=== PATIENT | female | born 1955 | race Caucasian/White ===

== ENCOUNTER 2021-01-09 14:58 | Outpatient (CLI) | payer MEDICARE, SELFPAY ==
--- NOTE | ~2021-01-09 | XR_ITS ---
XR chest 2V DATE: 01/09/2021 15:16 INDICATION: Shortness of breath, cough TECHNIQUE: PA and lateral views COMPARISON: None FINDINGS: Normal heart size. No hilar or mediastinal enlargement. There is approximately 1.5 cm opacity overlying the posterior right lower lung field and T9 vertebral body on the lateral projection; CT thorax is recommended for further evaluation. Moderate hyperinflation of the lungs. No pulmonary infiltrate or consolidation, pleural effusion or p ulmonary vascular congestion or pneumothorax is noted otherwise. Diffuse osteopenia. IMPRESSION: Approximately 1.5 cm opacity overlying posterior lower lung vallecillo and T9 vertebral body; CT thorax is recommended for further evaluation; lung mass should be excluded. On January 09, [address] Zepeda telephoned the report and CT chest recommendation to Dr. Wanda Neal. Reviewed, dictated and finalized at location A. AL CONTROL SUPERVISOR IMPRESSION: Approximately 1.5 cm opacity overlying posterior lower lung vallecillo and T9 vertebral body; CT thorax is recommended for further evaluation; lung ma ss should be excluded. On January 09, [address] Zepeda telephoned the report and CT chest recommendation to Dr. Wanda Neal.
== END 2021-01-09 14:59 | disposition home or self-care (01) ==
PROVIDERS: PCP Family Medicine; Visit Provider Family Medicine
DX: R06.02 Shortness of breath (principal)
CPT/HCPCS: 71046

== ENCOUNTER 2021-01-15 11:18 | Outpatient (CLI) | payer MEDICARE, SELFPAY ==
--- NOTE | ~2021-01-15 | CT_ITS ---
EXAMINATION: CT chest high resolution wo co DATE: 01/15/2021 12:21 INDICATION: Indeterminate nodular opacity on chest radiograph TECHNIQUE: Computed tomography (CT) of the chest was performed without intravenous contrast. The dose -length product (DLP) was 211.87 mGy-cm. Automated exposure control and iterative reconstruction tech [employer] were employed. COMPARISON: 01/09/2021 FINDINGS: There is a sclerotic lesion with spiculated margins in the T9 vertebral body. No additional sclerotic bone lesions are identified. The lungs are free of acute opacities. There is no pleural ef fusion or pneumothorax. No pathologically enlarged thoracic lymph nodes are identified. The heart siz e is normal. Calcified coronary artery atherosclerosis is noted. The liver is diffusely low in attenu ation when compared with the spleen, consistent with hepatic steatosis. There is a small sliding hiat al hernia. IMPRESSION: 1. Sclerotic lesion of the T9 vertebral body, likely a bone island given the appearance and absence o f additional osseous lesions. If there is history of malignancy, would recommend bone scan for furthe r evaluation. 2. Diffuse hepatic steatosis. Reviewed, dictated and finalized at location A. ER FITTER HELPER IMPRESSION: 1. Sclerotic lesion of the T9 vertebral body, likely a bone island given the ap pearance and absence of additional osseous lesions. If there is history of abbey gnancy, would recommend bone scan for further evaluation. 2. Diffuse hepatic steatosis.
== END 2021-01-15 11:19 | disposition home or self-care (01) ==
LOC: ANHIMG 11:24
PROVIDERS: PCP Family Medicine; Visit Provider Family Medicine
DX: R91.8 Other nonspecific abnormal finding of lung field (principal); R93.89 Abnormal findings on diagnostic imaging of other specified body structures; M89.9 Disorder of bone, unspecified; K76.0 Fatty (change of) liver, not elsewhere classified
CPT/HCPCS: 71250

== ENCOUNTER 2021-01-30 12:31 | Outpatient (CLI) | payer MEDICARE, SELFPAY ==
--- NOTE | 2021-01-30 17:07 | P.PCNPFT_ITS ---
PFT Interpretation This is a pulmonary function test with pre and post-bronchodilator spirometry, plethysmography and diffusing capacity. The test was performed and results interpreted in accordance with the 2019 and 2005 ATS/ERS Task Force guidelines respectively using the Global Lung Function Initiative-2012 reference equations. Patient demonstrated good effort and c ooperation. Reproducibility criteria were met. The quality of the pre bronchodilator spirometry maneuver was Grade A and post bronchodilator spirometry maneuver was Grade A. Findings: Spirometry: there is decreased maximal expiratory airflow at all lung volumes with concave expiratory flow tracing. The inspiratory flow tracing is normal. The pre bronchodilator FVC is 2.19 L, 71% predicted. The pre bronchodilator FEV1 is 1.15 L, 48% predicted. The FEV1: FVC ratio is 53%. The post bronchodilator FVC is 2.20 L, representing no change. The post bronchodilator FEV1 is 1.26 L, representing a 10% increase. Plethysmography: The total lung capacity is 4.89 L, 94% predicted. The functional residual capacity is 3.41 L, 115% predicted. The residual volume is 2.70 L, 125% predicted. Diffusing capacity: The absolute diffusion capacity is 13.9, 65% predicted. The diffusing capacity corrected for alveolar volume is 4.70, 109% predicted. Impression: There is a severe obstructive abnormality without significant improvement after inhaling a single dose of albuterol. The lung volumes are normal. The absolute diffusing capacity is mildly decreased and normalizes when corrected for alveolar volume. There are no prior studies for comparison
== END 2021-01-30 12:32 | disposition home or self-care (01) ==
PROVIDERS: PCP Family Medicine; Visit Provider Family Medicine
DX: R06.02 Shortness of breath (principal); R94.2 Abnormal results of pulmonary function studies
CPT/HCPCS: 94060; 94726; 94729

== ENCOUNTER 2021-05-11 10:38 | Outpatient (CLI) | payer MEDICARE, SELFPAY ==
--- NOTE | ~2021-05-11 | MM_ITS ---
EXAMINATION: MM screening myriam BI w maryjane HISTORY: Screening mammogram TECHNIQUE: Craniocaudal and mediolateral oblique 3-D tomosynthesis images were obtained and synthetic 2-D images were generated. CAD analysis was submitted and interpreted. COMPARISON: 11/01/2006 and 09/14/2005 bilateral digital screening mammogram examinations BREAST PARENCHYMAL COMPOSITION: There are scattered areas of fibroglandular density. FINDINGS: Possible new breast masses are suggested on the left. Diagnostic left mammogram and left br east ultrasound examination are recommended. No suspicious mass or architectural distortion or significant new or developing density is noted on t he right. No skin thickening or retraction. IMPRESSION: 1. Possible new left breast masses 2. Diagnostic left mammogram and left breast ultrasound examination are recommended. BI-RADS Category 0: Incomplete: Needs additional imaging evaluation. Reviewed, dictated and finalized at location A. IMPRESSION: 1. Possible new left breast masses 2. Diagnostic left mammogram and left breast ultrasound examination are recomme nded. BI-RADS Category 0: Incomplete: Needs additional imaging evaluation.
== END 2021-05-11 10:39 | disposition home or self-care (01) ==
LOC: ANHIMG 10:40
PROVIDERS: PCP Family Medicine; Visit Provider Family Medicine
DX: Z12.31 Encounter for screening mammogram for malignant neoplasm of breast (principal); R92.8 Other abnormal and inconclusive findings on diagnostic imaging of breast
CPT/HCPCS: 77063; 77067

== ENCOUNTER 2021-06-08 13:20 | Outpatient (CLI) | payer MEDICARE, SELFPAY ==
--- NOTE | ~2021-06-08 | MMUS_ITS ---
EXAMINATION: MM diagnostic mammo unilat LT, US breast LT complete HISTORY: Follow-up left breast asymmetries TECHNIQUE: Additional 3-D tomosynthesis images of the left breast were performed and synthetic 2-D im ages were generated. CAD analysis was submitted and interpreted. High resolution left complete breast ultrasound was performed. COMPARISON: 05/11/2021 BREAST PARENCHYMAL COMPOSITION: Breast composed of scattered areas of fibroglandular density. FINDINGS: MAMMOGRAPHIC FINDINGS: There are 2 small masses in the upper outer quadrant of the left breast which are partially obscured by fibroglandular tissue. There are no suspicious calcifications or architectural distortion. ULTRASOUND: Complete left breast ultrasound: At 1:00, 2 cm from the nipple, there is a 5 mm intramammary lymph no de. At 2:00, 4 cm from the nipple, there is a 4 mm cyst. At 2:00, 3 cm from the nipple, there is an o dominga hypoechoic mass measuring 8 x 7 x 4 mm with echogenic center, likely benign intramammary lymph no de. At 6:00, 3 cm from the nipple, there is an irregular shaped hypoechoic mass measuring 7 x 6 x 4 m m without posterior features or internal vascularity. IMPRESSION: 1. Irregular shaped hypoechoic mass of the left breast at 6:00, 3 cm from the nipple measuring 7 mm. 2. Ultrasound-guided left breast biopsy recommended. BI-RADS category 4, suspicious findings. Reviewed, dictated and finalized at location A. IMPRESSION: 1. Irregular shaped hypoechoic mass of the left breast at 6:00, 3 cm from the n ipple measuring 7 mm. 2. Ultrasound-guided left breast biopsy recommended. BI-RADS category 4, suspicious findings.
== END 2021-06-08 13:21 | disposition home or self-care (01) ==
LOC: ANHIMG 13:21
PROVIDERS: PCP Family Medicine; Visit Provider Family Medicine
DX: N63.21 Unspecified lump in the left breast, upper outer quadrant (principal); N60.02 Solitary cyst of left breast
CPT/HCPCS: 76641; 77065

== ENCOUNTER 2021-06-14 09:04 | Outpatient (CLI) | payer MEDICARE, SELFPAY ==
--- NOTE | ~2021-06-14 | MMUS_ITS ---
EXAMINATION: US GUIDED NEEDLE BIOPSY DATE: 06/14/2021 11:02 CDT INDICATION: 7 mm irregular hypoechoic sonographic lesion at 6:00 3 cm from nipple TECHNIQUE AND FINDINGS: The risks and potential benefits of the procedure were discussed with the patient, and written inform ed consent was obtained. Timeout procedure was performed. After sterile preparation of the left breas t, 1% lidocaine was utilized for local anesthesia. A 14G spring-loaded biopsy gun needle was advanced to the edge of the region of interest from a later al approach utilizing sonographic guidance. A total of three tissue core samples were obtained throu gh the lesion. An Inrad tissue marker clip was then placed at the biopsy site. Hemostasis was achiev ed. A sterile bandage was applied. The patient tolerated procedure well and there was no evidence of immediate complication. The patien t was given verbal instructions prior to departing from the department. A two view mammogram was perf ormed to document tissue marker clip placement. The tissue samples were submitted to surgical patholo gy for histologic analysis. IMPRESSION: 1. Successful ultrasound guided biopsy of left 6:00 breast mass with biopsy marker placement. Please refer to pathology report for histologic analysis. Reviewed, dictated and finalized at Location A. Reviewed, dictated and finalized at location A. IMPRESSION: 1. Successful ultrasound guided biopsy of left 6:00 breast mass with biopsy ma rker placement. Please refer to pathology report for histologic analysis.
== END 2021-06-14 09:05 | disposition home or self-care (01) ==
LOC: ANHIMG 09:06
PROVIDERS: PCP Family Medicine; Visit Provider Physician Assistant
DX: R92.8 Other abnormal and inconclusive findings on diagnostic imaging of breast (principal)
CPT/HCPCS: 19083; 88305; A4648

== ENCOUNTER 2021-07-24 14:13 | Outpatient (CLI) | payer MEDICARE, SELFPAY ==
--- NOTE | ~2021-07-24 | XR_ITS ---
EXAMINATION: XR chest 2V DATE: 07/24/2021 14:34 INDICATION: Cough and congestion TECHNIQUE: PA and lateral views of the chest are obtained. COMPARISON: 01/09/2021 FINDINGS: The lungs are free of acute opacities. There is no pleural effusion or pneumothorax. The ca rdiomediastinal silhouette is normal. There is moderate thoracic spondylosis. A bone island is noted in the T9 vertebral body. IMPRESSION: 1. No acute cardiopulmonary abnormality. Reviewed, dictated and finalized at location B.
== END 2021-07-24 14:14 | disposition home or self-care (01) ==
LOC: ANHIMG 14:18
PROVIDERS: PCP Family Medicine; Visit Provider Family Medicine
DX: R05 Cough (principal); R09.81 Nasal congestion; Z87.09 Personal history of other diseases of the respiratory system
CPT/HCPCS: 71046

== ENCOUNTER 2022-03-06 08:13 | Outpatient (CLI) | payer OTHER, SELFPAY ==
--- NOTE | ~2022-03-06 | CT_ITS ---
EXAMINATION:CT lung screening DATE: 03/06/2022 09:09 INDICATION: Personal history of tobacco dependence. Current smoker with 51 pack year history. TECHNIQUE: Computed tomography (CT) of the chest was performed without intravenous contrast. Automate d exposure control and iterative reconstruction technique were employed. The dose-length product (DLP ) was 107.30 mGy-cm. COMPARISON: Chest CT 01/15/2021 FINDINGS: There is mild scarring at the lung apices. There is mild atelectasis bilaterally. There is a 3 mm nodule in left lower lobe. There is a 5 mm nonsolid nodule in lingula. There is a 3 mm nodule at left major fissure. Calcified left lung nodules and calcified left hilar lymph nodes are consisten t with old granulomatous disease. No pleural effusion. The heart size is normal. There are coronary a rtery calcifications. No pericardial effusion. There is a small sliding hiatal hernia. There is diffu se hepatic steatosis. There is a benign bone island in T9. There is severe lower thoracic spondylosis . IMPRESSION: 1. Lung-RADS category 2: Benign appearance or behavior. Continue annual screening with noncontrast lo w-dose chest CT in 12 months. Reviewed, dictated and finalized at location B. IMPRESSION: 1. Lung-RADS category 2: Benign appearance or behavior. Continue annual screeni ng with noncontrast low-dose chest CT in 12 months.
--- NOTE | 2022-03-11 18:39 | WPDSIXMINUTE ---
Six Minute Walk Procedure Procedure Performed Pulmonary Stress Test (6 min walk) Six Minute Walk Six Minute Walk: DOS: 03/06/2022 REQUESTING: Dr Joel Sherman REASON FOR TESTING: Bronchitis: Shortness of breath SIX MINUTE WALK This test was conducted per ATS guidelines. the initial saturation is 96% and pulse is 68. The patient walked while breathing room air, did not stop to rest. Saturation minimum was 90%. Maximum pulse was 96. At the end of the study the saturation was 91% and the pulse was 84. Distance walked was 1300 feet/396 meters. IMPRESSION: The patient did not qualify for supplemental oxygen with exertion. The saturation decreased from 96% to 90%, a 6% drop which is outside the normal range. There was a delay in recovery. Clinical correlation is recommended.
== END 2022-03-06 08:14 | disposition home or self-care (01) ==
PROVIDERS: PCP Family Medicine; Visit Provider Internal Medicine Pulmonary Disease
DX: J40 Bronchitis, not specified as acute or chronic (principal); Z12.2 Encounter for screening for malignant neoplasm of respiratory organs; Z87.891 Personal history of nicotine dependence
CPT/HCPCS: 71271; 94618

== ENCOUNTER 2023-03-07 10:14 | Outpatient (CLI) | payer OTHER, SELFPAY ==
--- NOTE | ~2023-03-07 | CT_ITS ---
CT Scan of the Chest without Contrast: Clinical Indication: Lung cancer screening, current smoker Technique: Contiguous sections were acquired throughout the chest without intravenous contrast. Dose reduction technique was used on this scan by utilizing automated exposure control and iterative recon struction technique. The dose-length product (DLP) was 120.36 mGy-cm. COMPARISON: 03/06/2022, 01/15/2021 Findings: There is no evidence of any significant mediastinal, hilar or axillary lymphadenopathy. Coronary graeme ry calcifications are present. There is no evidence of pleural or pericardial effusion. Stable minimal scarring at the left lung base. Stable 5 mm groundglass nodule at the lingula. Images through the upper abdomen reveal no abnormalities. Impression: Lung RADS 2: Benign appearance. 12 month follow-up screening CT advised. Reviewed, dictated and finalized at [facility]. Impression: Lung RADS 2: Benign appearance. 12 month follow-up screening CT advised.
== END 2023-03-07 10:15 | disposition home or self-care (01) ==
PROVIDERS: PCP Family Medicine; Visit Provider Physician Assistant
DX: Z12.2 Encounter for screening for malignant neoplasm of respiratory organs (principal); F17.210 Nicotine dependence, cigarettes, uncomplicated
CPT/HCPCS: 71271

== ENCOUNTER 2023-06-23 09:42 | Outpatient (CLI) | payer OTHER, SELFPAY ==
--- NOTE | ~2023-06-23 | MM_ITS ---
EXAMINATION: MM screening myriam BI w maryjane HISTORY: Screening mammogram, family history of breast cancer in her sister. TECHNIQUE: Craniocaudal and mediolateral oblique 3-D tomosynthesis images were obtained and synthetic 2-D images were generated. CAD analysis was submitted and interpreted. COMPARISON: 06/08/2021, 05/11/2021, 11/01/2006 BREAST PARENCHYMAL COMPOSITION: The breasts are heterogeneously dense, which may obscure small masses . FINDINGS: No suspicious mass, calcification, or architectural distortion are identified in either polina ast to suggest malignancy. There has been no suspicious interval change. IMPRESSION: 1. No mammographic evidence of malignancy. 2. Recommend routine screening mammography in one year. BI-RADS Category 1: Negative Reviewed, dictated and finalized at location A.
--- NOTE | ~2023-06-23 | DEXA_ITS ---
Bone Density Report Name: DAVION MEJIA Age: 67 Sex: Female Ethnicity: White Date of : 1955 Indication: postmenopausal; screening for osteoporosis; height loss; hysterectomy; Referring Provider: JENNIFER, RAFAEL Khan Study: Bone densitometry was performed. Exam Date: June 23, 2023 Accession number: [id number] Bone Density: Region BMD T-score Z-score Classification AP Spine(L1-L4) 0.828 -2.0 0.0 Osteopenia Femoral Neck (Left) 0.658 -1.7 0.0 Osteopenia Total Hip (Left) 0.874 -0.6 0.9 Normal Femoral Neck (Right) 0.630 -2.0 -0.3 Osteopenia Total Hip (Right) 0.879 -0.5 0.9 Normal Total Hip Mean 0.877 -0.6 0.9 Normal World Health Organization criteria for BMD impression classify patients as: Normal (T-score at or above -1.0), Osteopenia (T-score between -1.0 and -2.5), or Osteoporosis (T-score at or below -2.5). 10-year Fracture Risk(1): Major Osteoporotic Fracture 11% Hip Fracture 2.7% Reported Risk Factors: [place] (), Neck BMD=0.630, BMI=37.4, smoking (1) FRAX(R) Version 3.08. Fracture probability calculated for an untreated patient. Fracture probability may be lower if the patient has received treatment. Clinical Information Provided by Patient: Smokes Has used the following medications: Vitamin D, Calcium Has the following medical conditions: Hysterectomy Patient maximum height was 65 Menopause Age: 38 No regular weight bearing exercise Does not regularly consume dairy products Onset of menses at age 11 Number of children 2 Impression: The patient has low bone mass, based on the Total Spine T-score. The patient has an estimated ten-year risk of hip fracture of 2.7% and an estimated ten-year risk of major fracture of 11%, based on the WHO FRAX algorithm. The patient has risk factors, including: smoking. Discussion: BONE DENSITY IS LOW AT ONE OR MORE SKELETAL SITES. This patient's lowest T-score is low at one or more skeletal sites. It meets the World Health Organization's (WHO) criteria for ?low bone mass? (T-score between -1.0 and -2.5). The patient's 10-year risk of fracture as calculated by FRAX is less than the threshold where pharmacological therapy is recommended by the National Osteoporosis Foundation (NOF). However, all treatment decisions require clinical judgment and consideration of individual patient factors, including patient preferences, comorbidities, previous drug use, risk factors not captured in the FRAX model (e.g., frailty, falls, vitamin D deficiency, increased bone turnover, interval significant decline in bone density) and possible under or overestimation of fracture risk by FRAX. The patient should follow a healthful lifestyle (good nutrition with adequate calcium and vitamin D, and appropriate weight-bearing exercise). Follow-Up: C
== END 2023-06-23 09:43 | disposition home or self-care (01) ==
LOC: ANHIMG 09:43
PROVIDERS: PCP Family Medicine; Visit Provider Nurse Practitioner Gerontology
DX: Z12.31 Encounter for screening mammogram for malignant neoplasm of breast (principal); Z78.0 Asymptomatic menopausal state; M85.89 Other specified disorders of bone density and structure, multiple sites
CPT/HCPCS: 77063; 77067; 77080

== ENCOUNTER 2023-08-08 08:08 | Outpatient (CLI) | payer OTHER, SELFPAY ==
--- NOTE | 2023-08-08 13:32 | WPDSIXMINUTE ---
Six Minute Walk Procedure Procedure Performed Pulmonary Stress Test (6 min walk) Six Minute Walk Six Minute Walk: This is a 6 minute walk test. The test was performed and interpreted in accordance with the 2014 ERS/ATS task force guidelines. Findings: The patient's resting room air oxygen saturation measured by pulse oximetry was 96% and heart rate was 76 bpm. Patient ambulated for 305 meters and oxygen saturation remained 89 to 95%. Heart rate at the end of the study was 100 bpm. The patient did not qualify for supplemental oxygen at rest or with ambulation. There are no prior studies for comparison.
== END 2023-08-08 08:09 | disposition home or self-care (01) ==
LOC: ANHPFT 08:09
PROVIDERS: PCP Family Medicine; Visit Provider Physician Assistant
DX: J44.9 Chronic obstructive pulmonary disease, unspecified (principal)
CPT/HCPCS: 94618

== ENCOUNTER 2023-10-14 09:35 | Outpatient (CLI) | payer OTHER, SELFPAY ==
--- NOTE | ~2023-10-14 | XR_ITS ---
Left Knee Technique: AP, lateral, and sunrise views were obtained. Clinical History: Pain Findings: No fracture or dislocation is seen. Osseous alignment is anatomic. Joint spaces are preserv ed without degenerative or erosive change. Soft tissues are unremarkable. No joint effusion is seen. Impression: Unremarkable left knee radiographs. Reviewed, dictated and finalized at location . ING AID REPAIRER Impression: Unremarkable left knee radiographs.
== END 2023-10-14 09:36 | disposition home or self-care (01) ==
PROVIDERS: PCP Family Medicine; Visit Provider Physician Assistant
DX: M25.562 Pain in left knee (principal)
CPT/HCPCS: 73564

== ENCOUNTER 2024-02-02 08:32 | Inpatient (IN) | payer OTHER, SELFPAY ==
[2024-02-02] VITALS (19 sets, daily range): BP systolic 105–144; BP diastolic 48–69; PULSE 78–101; RESP 16–32; TEMP 36.3–37.4; O2SAT 89–98; BMI 32.3
--- NOTE | ~2024-02-02 | XR_ITS ---
Clinical Indication: Shortness of breath PA and lateral views of the chest: Comparison: 07/24/2021 Findings: Questionable minimal bibasilar haziness. No other consolidation or pleural effusion. Cardi omediastinal silhouette is within normal limits. Bones and soft tissues are unremarkable. Impression: Possible minimal bibasilar pulmonary edema. Reviewed, dictated and finalized at location . Impression: Possible minimal bibasilar pulmonary edema.
--- NOTE | 2024-02-02 08:37 | ECG_ITS ---
Measurements Intervals [place] Rate: 91 P: 74 VA: 136 QRS: -2 QRSD: 98 T: 54 QT: 369 QTc: 455 Interpretive Statements SINUS RHYTHM BORDERLINE T WAVE ABNORMALITY- ANT/HIGH LAT LEADS BASELINE ARTIFACT- I, II, III, AVR, AVL, AVF, V1-V6 BORDERLINE ECG NO PREVIOUS ECG AVAILABLE FOR COMPARISON Electronically Signed On 02-02-2024 9:18:39 CDT by Roverto Anglin D.O.
--- NOTE | 2024-02-02 08:57 | ED.SOB ---
HPI - SOB/Dyspnea General Chief Complaint: Shortness of Breath/Dyspnea Stated Complaint: SOB since last noc Time Seen by Provider: 02/02/24 08:40 History of Present Illness HPI Narrative: Patient is a 68-year-old female with history of COPD who presents ER with shortness of breath. Reports over the last 2 days she has had nonproductive cough. She has had subjective fevers and chills. No known sick contacts. She reports that she typically wears 2 L of oxygen at night but it was not helping her last night she felt even more short of breath today. She has not been using nebulizer at home. No chest pain or chest pressure. She does have orthopnea. Related Data Home Medications Medication Instructions Recorded Confirmed multivitamin (Multiple Vitamins 1 tablet PO DAILY 01/09/21 02/02/24 tablet) atorvastatin 10 mg tablet 10 mg PO QHS 02/02/24 02/02/24 losartan 100 mg tablet 100 mg PO QHS 02/02/24 02/02/24 Allergies Allergy/AdvReac Type Severity Reaction Status Date / Time chaves Allergy Mild watery Verified 12/24/23 14:31 eyes and sneezes house dust Allergy Mild watery Verified 12/24/23 14:31 eyes,sneeze PMFSH Past Medical History Medical History (Updated 02/02/24 @ 19:53 by Ronni Staton MD) Chronic obstructive pulmonary disease Chronic respiratory failure with hypoxia, on home oxygen therapy 2 liters/minute at nighttime. Fatty liver Hyperlipidemia Hypertension Kidney stones Prediabetes Tobacco dependence Surgical History Surgical History (Updated 02/02/24 @ 13:59 by Mariaa Morataya PA-C) History of hysterectomy for benign disease History of tonsillectomy Family History Family History Sibling Breast cancer Father Diabetes mellitus Hypertension Heart disease Mother Heart disease Hypertension Social History Social History (Updated 02/02/24 @ 14:00 by Mariaa Morataya PA-C) Social History: Surrogate medical decision maker: Papa Markham or Nivia Sapp, children. Code status: Full code. Smoking packs per day: 0.5 Smoking cigarettes per day: 10.0 Years smoked: 50 Smoking pack-years: 25.00 Smoking status: Current every day smoker Second hand tobacco smoke exposure: Yes Alcohol intake: never Substance use: never Substance use type: does not use Do You Feel Safe in your Home?: Yes Lack of Transportation: No Lack of Food: Never True Current Housing: I Have Housing Concerned About Future Housing: No Difficulty Paying Gas/Electric Bills: No Difficulty Paying for Meds: No Currently Unemployed: YES Education: Don't Know Difficulty w/ Childcare or Family Care: No Living arrangements: alone Additional living arrangements comments: . Lives in [place]. Occupation/Education: retired Spiritual care concerns: No Exam Narrative: GENERAL: Chronically ill-appearing, well-nourished, and in no acute distress. HEAD: Normocephalic, atraumatic. EYES: PERRL and EOMI. ENT: Mucous membranes moist. CHEST: diminished bilaterally. Increased respiratory rate. HEART: Regular rate and rhythm. Normal peripheral pulses. ABDOMEN: Soft, nontender, nondistended. EXTREMITIES: Normal range of motion. No edema. SKIN: Warm, dry, no rash. NEURO: Alert and oriented x3. PSYCH: Normal mood and affect. Course Course Emergency Course: admit to hospitalist service for what is felt to be pneumonia as well as new oxygen requirement. Hospitalist requests Pulm consult. Vital Signs Vital signs: Vital Signs Temperature 98.1 F 02/02/24 08:31 Pulse Rate 96 02/02/24 08:31 Respiratory Rate 24 H 02/02/24 08:31 Blood Pressure 144/69 H 02/02/24 08:31 Pulse Oximetry 89 L 02/02/24 08:31 Oxygen Delivery Nasal Cannula 02/02/24 08:31 Oxygen Flow Rate 4 02/02/24 08:31 Temperature 97.4 F L 02/02/24 19:40 Pulse Rate 78 02/02/24 19:40 Respiratory
[2024-02-02 09:03] LABS: Basophils Absolute Auto 0.1 K/mm3 (0.0-0.1); Basophils Percent Auto 0.4 % (0.2-1.2); Eosinophils Percent Auto 0.1 % (0-4.4); Hematocrit 41.7 % (37.0-47.0); Hemoglobin 13.6 g/dL (12.0-15.0); Immature Granulocyte Absolute 0.07 K/mm3 (0.00-0.031); Immature Granulocyte Percent A 0.5 % (0-0.5); Lymphocytes Absolute Auto 1.03 K/mm3 (0.9-3.2); Lymphocytes Percent Auto 7.4 % (18.3-44.2); Mean Corpuscular HGB Conc 32.6 g/dl (32-36); Mean Corpuscular Hemoglobin 30.2 pg (26-34); Mean Corpuscular Volume 92.7 fl (80-100); Mean Platelet Volume 9.6 fl (7.4-10.4); Monocytes Absolute Auto 1.8 K/mm3 (0.1-0.6); Monocytes Percent Auto 12.8 % (2.6-8.5); Neutrophils Percent Auto 78.8 % (45.5-73.1); Platelet Count Result 271 k/mm3 (150-375); Red Cell Distribution Width 13.3 % (11.5-14.5)
[2024-02-02 09:05] LABS: Alveolar/Arterial O2 Gradient 80.2 mmHg; Base Excess ABG 0.6 mEq/l (+/-2.0); Carboxyhemoglobin 1.2 % THb (0-2.0); Fractional Inspired Oxygen 28 %; Methemoglobin ABG 0.1 %THb (0-1.5); Oxygen Content ABG 17.7 %vol (16.0-22.0); Oxygen Saturation ABG 95.1 % (95.0-100.0); Oxyhemoglobin 92.5 % THb (90.0-100.0); PCO2 ABG 39.2 mmHg (35.0-45.0); PO2 ABG 73.2 mmHg (80.0-100.0); PO2 FiO2 Ratio Arterial Blood 2.61 %; Reduced Hemoglobin 6.2 %THb (0-5.0); Total Hemoglobin 13.6 g/dL (12.0-18.0); pH ABG 7.422 (7.350-7.450)
[2024-02-02 09:07] LABS: Device NASAL CANNULA; Site Drawn RIGHT BRACHIAL
[2024-02-02 09:14] LABS: Alanine Aminotransferase 30 U/L (6-35); Albumin Level 4.1 g/dL (3.5-5.1); Alkaline Phosphatase 84 U/L (38-126); Anion Gap 3 mmol/L (8-16); Aspartate Amino Transferase 34 U/L (14-36); Bilirubin,Total 1.1 mg/dL (0.2-1.3); Blood Urea Nitrogen 15 mg/dL (7-17); Calcium 9.4 mg/dL (8.4-10.2); Carbon Dioxide 37 mmol/L (22-30); Chloride 99 mmol/L (98-107); Estimated CRCL calculation 58 ml/min; Estimated Glomerular Filt Rate > 60; Glucose 133 mg/dL (65-110); Potassium 3.7 mmol/L (3.4-5.0); Sodium 139 mmol/L (137-145)
[2024-02-02] MEDS: IPRATROPIUM BR 0.02% INH SOLN 0.5 MG/2.5 ML VIAL 1 MG INHALATION (09:14)
[2024-02-02] MEDS: ALBUTEROL SULFATE NEB 2.5 MG/3 ML INH 10 MG INHALATION (09:14)
[2024-02-02 09:41] LABS: Influenza A QL RT-PCR Negative (Negative); Influenza B QL RT-PCR Negative (Negative); RSV RNA, RT-PCR Negative (Negative); SARS-CoV-2 RNA PCR Negative (Negative)
[2024-02-02 11:48] LABS: NT Pro B Type Natriuretic Pept 248 pg/mL (19.9-100)
[2024-02-02] MEDS: methylPREDNISolone SOD SUCC 125 MG VIAL 60 MG IV PUSH ×2 (12:22→17:20)
[2024-02-02] MEDS: AZITHROMYCIN 500 MG/NS 250 ML 500 MG/250 ML BAG 250 MG IVPB (12:22)
--- NOTE | 2024-02-02 12:24 | ADMGEN ---
This patient, Anne-Marie Markham, was admitted to Medical Room 240-01. Patient/family oriented to hospital policies and general routines including ID bracelet, bed and alarms, visiting hours, pain management, procedures, bathroom and other care routines, personal items, smoking policy, room service/diet, and visiting hours. Information on how to activate the Rapid Response Team has been discussed. Patient/Family are encouraged to report perceived risks to care and to ask questions if they do not understand what they are told or what they should do.
[2024-02-02] MEDS: IPRATROPIUM 0.5 MG/ALBUTEROL SULFATE 2.5 MG AMPUL.NEB 3 ML INHALATION ×2 (13:20→20:44)
--- NOTE | 2024-02-02 13:39 | PM.IMHP ---
H&P: HPI History of Present Illness Date/Time: 02/02/24 13:39 Chief Complaint: Shortness of breath. Narrative: This is a 68-year-old female smoker with chronic obstructive pulmonary disease, chronic respiratory failure on 2 liters/minute at night with sleep, prediabetes, hypertension, and hyperlipidemia who presented to the emergency department for evaluation of shortness of breath. The patient provides the following history. She has not felt well for a couple of days with subjective fever, chills, cough occasionally productive of light yellow phlegm, increasing dyspnea on lesser and lesser exertion, decreased appetite, and nausea. Her shortness of breath was worse overnight and this morning and she came in for evaluation. She uses her maintenance inhalers but has not tried using her rescue inhaler. She has not have nebulizers at home. She denies documented fever, sick contacts, sinus congestion, sore throat, chest and pleuritic pain, palpitations, orthopnea, paroxysmal nocturnal dyspnea, calf pain, edema, vomiting, and diarrhea. In the ED: She was afebrile on arrival with stable vital signs. SpO2 has been in the upper 90s on 4 L nasal cannula. Labs were significant for a WBC count of 14.0, carbon dioxide 37, glucose 133, proBNP 248. She tested negative for influenza, RSV, and COVID. Chest x-ray showed possible minimal bibasilar pulmonary edema. She received a DuoNeb, azithromycin, ceftriaxone, and methylprednisolone and she is being admitted in this setting for treatment of COPD exacerbation and possible pneumonia. Review of Systems Review of Systems: Twelve systems were reviewed and are negative except for as per HPI. [facility] Past Medical History Medical History (Updated 02/02/24 @ 14:01 by Mariaa Morataya PA-C) Chronic obstructive pulmonary disease Chronic respiratory failure with hypoxia, on home oxygen therapy 2 liters/minute at nighttime. Fatty liver Hyperlipidemia Hypertension Kidney stones Prediabetes Tobacco dependence Surgical History Surgical History (Updated 02/02/24 @ 13:59 by Mariaa Morataya PA-C) History of hysterectomy for benign disease History of tonsillectomy Family History Family History Sibling Breast cancer Father Diabetes mellitus Hypertension Heart disease Mother Heart disease Hypertension Social History Social History (Updated 02/02/24 @ 14:00 by Mariaa Morataya PA-C) Social History: Surrogate medical decision maker: Papa Markham or Nivia Sapp, children. Code status: Full code. Smoking packs per day: 0.5 Smoking cigarettes per day: 10.0 Years smoked: 50 Smoking pack-years: 25.00 Smoking status: Current every day smoker Second hand tobacco smoke exposure: Yes Alcohol intake: never Substance use: never Substance use type: does not use Do You Feel Safe in your Home?: Yes Lack of Transportation: No Lack of Food: Never True Current Housing: I Have Housing Concerned About Future Housing: No Difficulty Paying Gas/Electric Bills: No Difficulty Paying for Meds: No Currently Unemployed: YES Education: Don't Know Difficulty w/ Childcare or Family Care: No Living arrangements: alone Additional living arrangements comments: . Lives in [place]. Occupation/Education: retired Spiritual care concerns: No Meds Home Medications and Allergies Home Medications Medication Instructions Recorded Confirmed Type multivitamin (Multiple Vitamins 1 tablet PO DAILY 01/09/21 02/02/24 History tablet) hydrochlorothiazide 12.5 mg capsule 12.5 mg PO DAILY #100 caps 07/14/23 02/02/24 Rx albuterol sulfate 90 mcg/actuation 1 - 2 puff inhalation Q4-6H PRN 07/15/23 02/02/24 Rx aerosol inhaler shortness of breath or wheezing #8.5 grams fluticasone fur. 100 mcg-umeclid 1 inh inhalation DAILY #60 ea 08/26/23 02/02/24 Rx 62.5 mcg-vilant 25 mcg inhalat.powder (Trelegy
--- NOTE | 2024-02-02 14:15 | ECHO_ITS ---
Patient Info Name: Anne-Marie Markham Age: 68 years : 1955 Gender: Female Ht: 65 in Wt: 194 lbs BSA: 2.04 m2 HR: 78 bpm BP: 144 / 69 mmHg Technical Quality: Good Exam Date: 02/02/2024 3:53 PM Exam Location: Echo Lab Exam Room: 240 Patient Status: Inpatient Admit Date: 02/02/2024 Staff Ordering Physician: Mariaa Morataya PA-C Insurance Assistant: Amarilys Alan RDCS Attending Provider: Jay Gtz MD Referring Physician: Rafia JEFF; Exam Type: CA echo doppler color flow Study Info Indications - HYPOXIA ORTHOPNEA PULM EDEMA Complete two-dimensional, color flow and Doppler transthoracic echocardiogram is performed. Summary 1. Complete two-dimensional, color flow and Doppler transthoracic echocardiogram is performed. 2. Left ventricular chamber dimension is normal. 3. Left ventricular systolic function is normal, estimated at 65-70%. 4. The left ventricular diastolic function is grade II diastolic dysfunction. 5. E/e' 8 is minimally elevated. 6. Left atrial chamber dimension is mildly enlarged. 7. There is mild aortic valve sclerosis. 8. There is trace mitral valve regurgitation. 9. There is trace tricuspid valve regurgitation. 10. Mild pulmonary hypertension, estimated pulmonary arterial systolic pressure is 42 mmHg. 11. There is trace pulmonic regurgitation. Left Ventricle E/e' 8 is minimally elevated. Left ventricular chamber dimension is normal. Left ventricular systolic function is normal, estimated at 65-70%. The left ventricular diastolic function is grade II diastolic dysfunction. Right Ventricle Right ventricular chamber dimension is normal. Right ventricular systolic function is normal. Left Atria Left atrial chamber dimension is mildly enlarged. Right Atria Right atrial chamber dimension is normal. Aortic Valve The aortic valve is trileaflet. There is mild aortic valve sclerosis. There is no aortic valve stenosis. There is no aortic valve regurgitation. Pulmonic Valve There is trace pulmonic regurgitation. Mitral Valve There is no mitral valve stenosis. There is trace mitral valve regurgitation. Tricuspid Valve There is trace tricuspid valve regurgitation. Mild pulmonary hypertension, estimated pulmonary arterial systolic pressure is 42 mmHg. Pericardium/Pleural There is no pericardial effusion. Inferior Vena Cava Normal inferior vena cava with >50% collapse upon inspiration consistent with normal right atrial pressure, 5 mmHg. Aorta The aortic root size at the sinus of Valsalva is normal. Left Ventricular Outflow Tract Name Value Normal LVOT 2D LVOT Diameter 2.0 cm LVOT Doppler LVOT Peak Gradient 7 mmHg LVOT Mean Gradient 4 mmHg LVOT VTI 25 cm LVOT VTI/AV VTI Ratio 0.9 LVOT Stroke Volume 82 ml LVOT CO 18.8 l/min LVOT CI 9.2 l/min/m2 Pulmonic Valve Name Value Normal
[2024-02-02] MEDS: ATORVASTATIN 10 MG TABLET PO (20:39)
[2024-02-02] MEDS: guaiFENesin 12 HR 600 MG TABCR PO (20:39)
[2024-02-02] MEDS: LOSARTAN POTASSIUM 100 MG TABLET PO (20:40)
[2024-02-03] VITALS (15 sets, daily range): BP systolic 104–122; BP diastolic 48–61; PULSE 70–89; RESP 17–19; TEMP 36.4–36.5; O2SAT 92–97
[2024-02-03] MEDS: IPRATROPIUM 0.5 MG/ALBUTEROL SULFATE 2.5 MG AMPUL.NEB 3 ML INHALATION ×4 (01:59→19:20)
[2024-02-03 06:14] LABS: Hematocrit 37.9 % (37.0-47.0); Hemoglobin 12.1 g/dL (12.0-15.0); Mean Corpuscular HGB Conc 31.9 g/dl (32-36); Mean Platelet Volume 10.1 fl (7.4-10.4); Platelet Count Result 274 k/mm3 (150-375); Red Blood Count 4.03 M/mm3 (4.2-5.4); Red Cell Distribution Width 13.2 % (11.5-14.5)
[2024-02-03 06:24] LABS: Anion Gap 1 mmol/L (8-16); Blood Urea Nitrogen 22 mg/dL (7-17); Calcium 9.2 mg/dL (8.4-10.2); Carbon Dioxide 37 mmol/L (22-30); Chloride 101 mmol/L (98-107); Estimated CRCL calculation 47 ml/min; Estimated Glomerular Filt Rate 49; Glucose 144 mg/dL (65-110); Magnesium 2.5 mg/dL (1.6-2.3); Sodium 139 mmol/L (137-145)
--- NOTE | 2024-02-03 07:44 | PM.IMPN ---
Progress Note: A&P Assessment and Plan (1) Acute and chronic respiratory failure with hypoxia: Code(s): J96.21 - Acute and chronic respiratory failure with hypoxia Status: Acute Assessment and Plan: patient usually only has to wear oxygen 2 liters/minute at night but on admission was requiring 4 liters/minute during the day to maintain saturation above 90%. Continue supplemental oxygen attempt to wean during the day. (2) Abnormal chest x-ray: Code(s): R93.89 - Abnormal findings on diagnostic imaging of other specified body structures Status: Acute Assessment and Plan: Findings of pulmonary edema chest x-ray. Echocardiogram shows grade 2 diastolic dysfunction with some mild pulmonary artery hypertension. Patient is being treated for possible pneumonia and congestive heart failure. (3) Hypertension: Code(s): I10 - Essential (primary) hypertension Status: Acute Assessment and Plan: History of chronic hypertension takes atenolol and HCTZ. Stop HCTZ and add furosemide for pulmonary edema. Blood pressure reviewed on 02/02. (4) Hyperlipidemia: Qualifiers: Hyperlipidemia type: mixed hyperlipidemia Qualified Code(s): E78.2 - Mixed hyperlipidemia Code(s): E78.5 - Hyperlipidemia, unspecified Status: Acute Assessment and Plan: Continue home medications (5) Prediabetes: Code(s): R73.03 - Prediabetes Status: Acute Assessment and Plan: Prior hemoglobin A1c of 5.7 about 5 months ago. Slightly elevated on chemistry panel. Patient is on heart healthy diet. If this continues to rise with chemistry panels then we will recheck A1c and initiate fingerstick glucose with sliding scale insulin. (6) Tobacco dependence: Code(s): F17.200 - Nicotine dependence, unspecified, uncomplicated Status: Acute Assessment and Plan: Smoking cessation reinforced. Continue to reinforce smoking cessation. Offer nicotine patch. Time Spent With Patient Time with patient: Greater than 35 minutes Subjective Date/time seen: 02/03/24 07:44 Interval history: This is a 68-year-old female patient with a past history of COPD hypertension who is admitted for difficulty breathing requiring oxygen around the clock. Patient reports that she does wear oxygen 2 L at nighttime at home due to her COPD but never needs it during the day. She reports that she was generally not feeling well a days ago and developed cough and difficulty breathing. She states this feels different than her prior COPD exacerbations. No past history of congestive heart failure chest x-ray in the emergency department shows pulmonary edema. Echocardiogram completed showing grade 2 diastolic dysfunction. Will initiate Lasix and discontinue HCTZ that patient takes for her hypertension. Patient was also started on IV antibiotics for possible pneumonia will continue Rocephin IV and changes azithromycin to oral. Slight JESSICA noted with estimated GFR down to 49 this morning when it was greater than 60 the ER. White blood cell count remains 14 this morning which is the same as on admission. Patient noted chills previously, denies known fever. Review of Systems Review of Systems: All systems reviewed & are unremarkable except as noted in HPI and below Exam Narrative: General: Mildly ill-appearing female sitting up in bed in no distress. Supplemental oxygenation in place 2 liters/minute HEENT: PERRL, EOMI. Sclera anicteric. Oral mucosa moist. Oropharynx clear. Neck: Supple. No JVD or lymphadenopathy. Respiratory: Respirations are nonlabored. Lung sounds are a bit diminished with some crackles on the right Cardiovascular: Regular rate and rhythm with S1-S2. Gastrointestinal: Abdomen is soft, nontender, and nondistended with positive bowel sounds. Skin: Warm and dry. No rash or lesions on limited exam. Extremities: No cyanosis or clubbing. Trace velia ankle edema bilat
[2024-02-03] MEDS: FLUTICASONE/UMECLIDIN/VILANTER 100-62.5-25 MCG ELLIPTA 1 PUFF INHALATION (07:46)
[2024-02-03] MEDS: ENOXAPARIN 40 MG/0.4 ML SYRINGE SUB-Q (08:35)
[2024-02-03] MEDS: MULTIVITAMINS THERAPEUTIC TAB (*BKC) 1 TABLET PO (08:36)
[2024-02-03] MEDS: atenoloL 50 MG TABLET PO (08:36)
[2024-02-03] MEDS: FUROSEMIDE 40 MG TABLET PO ×2 (08:58→16:25)
[2024-02-03] MEDS: AZITHROMYCIN 250 MG TABLET 500 MG PO (08:58)
[2024-02-03] MEDS: BENZONATATE 100 MG CAPSULE 200 MG PO ×3 (08:58→16:24)
[2024-02-03] MEDS: LOSARTAN POTASSIUM 100 MG TABLET PO (20:36)
[2024-02-03] MEDS: ATORVASTATIN 10 MG TABLET PO (20:36)
--- NOTE | 2024-02-03 22:09 | PM.CNPUL ---
Assessment and Plan Assessment and plan (1) Pneumonia: Qualifiers: Pneumonia type: due to unspecified organism Lung location: unspecified part of lung Laterality: unspecified laterality Qualified Code(s): J18.9 - Pneumonia, unspecified organism Code(s): J18.9 - Pneumonia, unspecified organism Status: Acute Assessment and Plan: She has infiltrate on chest x-ray, elevated white blood cell count, increasing shortness of breath, increased O2 requirement. Her serology for viral pathogens is negative. She does not have significant sputum production. Her current antibiotic choices is a the mycin and ceftriaxone are appropriate. Continue diuresis, await Urine antigens for strep pneumococcus and Legionella. If she has increased O2 need, repeat CXR. Check extended respiratory pathogen panel. (2) COPD (chronic obstructive pulmonary disease): Code(s): J44.9 - Chronic obstructive pulmonary disease, unspecified Status: Acute Assessment and Plan: Continue her bronchodilators, now on albuterol and ipratropium nebulized; at home uses Trelegy. (3) Acute and chronic respiratory failure with hypoxia: Code(s): J96.21 - Acute and chronic respiratory failure with hypoxia Status: Acute Assessment and Plan: Uses O2 at night only at home, 2 L/min, and here is on o2 in the day and night, saturiaton is 2.5 L/min, lower (4) Tobacco dependence: Code(s): F17.200 - Nicotine dependence, unspecified, uncomplicated Status: Acute Assessment and Plan: Good time to stop; 1/2 ppd. (5) Chronic respiratory failure with hypoxia, on home oxygen therapy: Code(s): J96.11 - Chronic respiratory failure with hypoxia; Z99.81 - Dependence on supplemental oxygen Status: Acute Assessment and Plan: Uses O2 at night at baseline. May need walk stud yprior to discharge. History of Present Illness History of Present Illness Consult date: 02/04/24 Requesting physician: Jay Gtz MD Chief complaint: Pneumonia/Hypoxia Narrative: pt was seen February 03 at 13:00 Room 240 NEW: Anne-Marie Markham is a 68-year-old female smoker with COPD, on O2, and smokes a half pack a day. She is on home O2 admitted with increased shortness of breath; her last office visit was 07/15/2023 up in our clinic. The patient was weak, not feeling well; Her sister who was sick was visiting from [facility] January 24 for her mother's weekend. Her mother is 101 years old and is recovering from a fractured hip after falling. The patient thinks she may have gotten sick from her sister. The patient developed hoarseness, could not eat, shortness of breath without fever or chills. Family called 911. She did not have a fever on arrival. On 4 L saturation was in the upper 90s. She had an elevated white blood cell count 14 which is now higher 16k, her initial BUN was normal 15 and creatinine 0.9, and with diuresis these have increased, now 391.5.Swabs were negative for influenza A/B, RSV and COVID. Chest x-ray showed minimal basilar pulmonary edema. She was treated with ceftriaxone, azithromycin, DuoNebs and IV methylprednisolone. She is being treated for COPD exacerbation, possible pneumonia. She is also being treated for congestive heart failure with diuretics. Her echo showed grade 2 diastolic dysfunction. She has been on oxygen 2 liters/minute at night since May 2022. She does not require during the day. She thinks that does not help her really, said she never really had any symptoms at night. She short of breath with most activities, cannot go up a flight of stairs. She does not have a chronic c
[2024-02-04] VITALS (15 sets, daily range): BP systolic 101–113; BP diastolic 45–57; PULSE 67–76; RESP 16–24; TEMP 36.5–36.8; O2SAT 92–100
[2024-02-04] MEDS: IPRATROPIUM 0.5 MG/ALBUTEROL SULFATE 2.5 MG AMPUL.NEB 3 ML INHALATION ×4 (01:21→21:35)
[2024-02-04 06:05] LABS: Basophils Absolute Auto 0.1 K/mm3 (0.0-0.1); Basophils Percent Auto 0.3 % (0.2-1.2); Eosinophils Percent Auto 0.2 % (0-4.4); Hematocrit 38.3 % (37.0-47.0); Hemoglobin 11.9 g/dL (12.0-15.0); Immature Granulocyte Absolute 0.26 K/mm3 (0.00-0.031); Immature Granulocyte Percent A 1.6 % (0-0.5); Lymphocytes Absolute Auto 1.94 K/mm3 (0.9-3.2); Lymphocytes Percent Auto 11.9 % (18.3-44.2); Mean Corpuscular HGB Conc 31.1 g/dl (32-36); Mean Corpuscular Hemoglobin 29.8 pg (26-34); Mean Platelet Volume 9.8 fl (7.4-10.4); Monocytes Absolute Auto 1.8 K/mm3 (0.1-0.6); Monocytes Percent Auto 11.2 % (2.6-8.5); Neutrophils Absolute Auto 12.2 K/mm3 (1.3-6.7); Neutrophils Percent Auto 74.8 % (45.5-73.1); Platelet Count Result 300 k/mm3 (150-375); Red Blood Count 3.99 M/mm3 (4.2-5.4); Red Cell Distribution Width 13.7 % (11.5-14.5); White Blood Count 16.3 K/mm3 (4.5-10.0)
[2024-02-04 06:44] LABS: Alanine Aminotransferase 70 U/L (6-35); Albumin Level 3.3 g/dL (3.5-5.1); Alkaline Phosphatase 76 U/L (38-126); Anion Gap -1 mmol/L (8-16); Aspartate Amino Transferase 63 U/L (14-36); Bilirubin,Total 0.4 mg/dL (0.2-1.3); Blood Urea Nitrogen 39 mg/dL (7-17); Carbon Dioxide 39 mmol/L (22-30); Chloride 101 mmol/L (98-107); Estimated CRCL calculation 35 ml/min; Estimated Glomerular Filt Rate 34; Glucose 93 mg/dL (65-110); Magnesium 2.4 mg/dL (1.6-2.3); Potassium 3.1 mmol/L (3.4-5.0); Sodium 139 mmol/L (137-145)
[2024-02-04] MEDS: FLUTICASONE/UMECLIDIN/VILANTER 100-62.5-25 MCG ELLIPTA 1 PUFF INHALATION (07:27)
--- NOTE | 2024-02-04 08:10 | PM.IMPN ---
Progress Note: A&P Assessment and Plan (1) Acute and chronic respiratory failure with hypoxia: Code(s): J96.21 - Acute and chronic respiratory failure with hypoxia Status: Acute Assessment and Plan: patient usually only has to wear oxygen 2 liters/minute at night but on admission was requiring 4 liters/minute during the day to maintain saturation above 90%. Continue supplemental oxygen attempt to wean during the day. 02/03: oxygen had to be increased slightly this morning due to dyspnea and fluid overload. (2) Abnormal chest x-ray: Code(s): R93.89 - Abnormal findings on diagnostic imaging of other specified body structures Status: Acute Assessment and Plan: Findings of pulmonary edema chest x-ray. Echocardiogram shows grade 2 diastolic dysfunction with some mild pulmonary artery hypertension. Patient is being treated for possible pneumonia and congestive heart failure. (3) Hypertension: Code(s): I10 - Essential (primary) hypertension Status: Acute Assessment and Plan: History of chronic hypertension takes atenolol and HCTZ. Stop HCTZ and add furosemide for pulmonary edema. Blood pressure reviewed on 02/03. (4) Hyperlipidemia: Qualifiers: Hyperlipidemia type: mixed hyperlipidemia Qualified Code(s): E78.2 - Mixed hyperlipidemia Code(s): E78.5 - Hyperlipidemia, unspecified Status: Acute Assessment and Plan: Continue home medications (5) Prediabetes: Code(s): R73.03 - Prediabetes Status: Acute Assessment and Plan: Prior hemoglobin A1c of 5.7 about 5 months ago. Slightly elevated on chemistry panel. Patient is on heart healthy diet. If this continues to rise with chemistry panels then we will recheck A1c and initiate fingerstick glucose with sliding scale insulin. 02/03: Glucose normal on chemistry morning labs (6) Tobacco dependence: Code(s): F17.200 - Nicotine dependence, unspecified, uncomplicated Status: Acute Assessment and Plan: Smoking cessation reinforced. Continue to reinforce smoking cessation. Offer nicotine patch. (7) JESSICA (acute kidney injury): Code(s): N17.9 - Acute kidney failure, unspecified Status: Acute Assessment and Plan: 02/03: Worsened renal function on labs this morning. Cr 1.5, BUN 39, eGFR 34 Time Spent With Patient Time with patient: Greater than 35 minutes Subjective Date/time seen: 02/04/24 08:10 Interval history: Pulled from previous chart: 02/01: This is a 68-year-old female smoker with chronic obstructive pulmonary disease, chronic respiratory failure on 2 liters/minute at night with sleep, prediabetes, hypertension, and hyperlipidemia who presented to the emergency department for evaluation of shortness of breath. The patient provides the following history. She has not felt well for a couple of days with subjective fever, chills, cough occasionally productive of light yellow phlegm, increasing dyspnea on lesser and lesser exertion, decreased appetite, and nausea. Her shortness of breath was worse overnight and this morning and she came in for evaluation. She uses her maintenance inhalers but has not tried using her rescue inhaler.? She has not have nebulizers at home. She denies documented fever, sick contacts, sinus congestion, sore throat, chest and pleuritic pain, palpitations, orthopnea, paroxysmal nocturnal dyspnea, calf pain, edema, vomiting, and diarrhea. In the ED: She was afebrile on arrival with stable vital signs. SpO2 has been in the upper 90s on 4 L nasal cannula. Labs were significant for a WBC count of 14.0, carbon dioxide 37, glucose 133, proBNP 248.? She tested negative for influenza, RSV, and COVID. Chest x-ray showed possible minimal bibasilar pulmonary edema. She received a DuoNeb, azithromycin, ceftriaxone, and methylprednisolone and she is being admitted in this setting for treatment of COPD exacerbation and possible pneumonia
[2024-02-04] MEDS: BENZONATATE 100 MG CAPSULE 200 MG PO ×3 (08:35→17:50)
[2024-02-04] MEDS: AZITHROMYCIN 250 MG TABLET 500 MG PO (08:38)
[2024-02-04] MEDS: MULTIVITAMINS THERAPEUTIC TAB (*BKC) 1 TABLET PO (08:39)
[2024-02-04] MEDS: FUROSEMIDE 20 MG TABLET PO ×2 (08:39→17:50)
[2024-02-04] MEDS: POTASSIUM CHLORIDE 20 MEQ ER TABLET 40 MEQ PO (08:39)
[2024-02-04] MEDS: atenoloL 50 MG TABLET PO (08:39)
[2024-02-04] MEDS: ENOXAPARIN 40 MG/0.4 ML SYRINGE SUB-Q (08:40)
[2024-02-04] MEDS: FUROSEMIDE INJ 40 MG/4 ML VIAL IV PUSH (09:56)
[2024-02-04] MEDS: LOSARTAN POTASSIUM 100 MG TABLET PO (20:08)
[2024-02-04] MEDS: ACETAMINOPHEN 325 MG TABLET 650 MG PO (20:08)
[2024-02-04] MEDS: ATORVASTATIN 10 MG TABLET PO (20:08)
[2024-02-05] VITALS (17 sets, daily range): BP systolic 103–118; BP diastolic 49–55; PULSE 64–86; RESP 16–20; TEMP 36.2–36.5; O2SAT 86–100
[2024-02-05 00:58] LABS: Legionella pneumophila Ag Ur Not Detected (Not Detected)
[2024-02-05] MEDS: IPRATROPIUM 0.5 MG/ALBUTEROL SULFATE 2.5 MG AMPUL.NEB 3 ML INHALATION ×2 (03:05→08:19)
[2024-02-05 03:32] LABS: Pneumococcal Antigen Urine Not Detected (Not Detected)
[2024-02-05 05:53] LABS: Basophils Absolute Auto 0.1 K/mm3 (0.0-0.1); Basophils Percent Auto 0.8 % (0.2-1.2); Eosinophils Absolute Auto 0.1 K/mm3 (0-0.3); Eosinophils Percent Auto 1.1 % (0-4.4); Hematocrit 40.8 % (37.0-47.0); Hemoglobin 12.5 g/dL (12.0-15.0); Immature Granulocyte Absolute 0.39 K/mm3 (0.00-0.031); Immature Granulocyte Percent A 3.3 % (0-0.5); Lymphocytes Absolute Auto 2.18 K/mm3 (0.9-3.2); Lymphocytes Percent Auto 18.5 % (18.3-44.2); Mean Corpuscular HGB Conc 30.6 g/dl (32-36); Mean Corpuscular Hemoglobin 29.6 pg (26-34); Mean Corpuscular Volume 96.7 fl (80-100); Mean Platelet Volume 9.6 fl (7.4-10.4); Monocytes Absolute Auto 1.5 K/mm3 (0.1-0.6); Monocytes Percent Auto 12.3 % (2.6-8.5); Neutrophils Absolute Auto 7.6 K/mm3 (1.3-6.7); Platelet Count Result 310 k/mm3 (150-375); Red Blood Count 4.22 M/mm3 (4.2-5.4); Red Cell Distribution Width 13.8 % (11.5-14.5); White Blood Count 11.8 K/mm3 (4.5-10.0)
[2024-02-05 06:13] LABS: Alanine Aminotransferase 69 U/L (6-35); Albumin Level 3.5 g/dL (3.5-5.1); Alkaline Phosphatase 76 U/L (38-126); Aspartate Amino Transferase 50 U/L (14-36); Bilirubin,Total 0.4 mg/dL (0.2-1.3); Blood Urea Nitrogen 43 mg/dL (7-17); Calcium 9.1 mg/dL (8.4-10.2); Carbon Dioxide > 40 mmol/L (22-30); Chloride 100 mmol/L (98-107); Estimated CRCL calculation 29 ml/min; Estimated Glomerular Filt Rate 28; Glucose 108 mg/dL (65-110); Magnesium 2.5 mg/dL (1.6-2.3); Potassium 3.5 mmol/L (3.4-5.0); Sodium 143 mmol/L (137-145)
[2024-02-05] MEDS: FLUTICASONE/UMECLIDIN/VILANTER 100-62.5-25 MCG ELLIPTA 1 PUFF INHALATION (08:19)
[2024-02-05] MEDS: BENZONATATE 100 MG CAPSULE 200 MG PO (09:48)
[2024-02-05] MEDS: FUROSEMIDE 20 MG TABLET PO (09:48)
[2024-02-05] MEDS: atenoloL 50 MG TABLET PO (09:48)
[2024-02-05] MEDS: AZITHROMYCIN 250 MG TABLET 500 MG PO (09:49)
[2024-02-05] MEDS: MULTIVITAMINS THERAPEUTIC TAB (*BKC) 1 TABLET PO (09:49)
[2024-02-05] MEDS: ENOXAPARIN 40 MG/0.4 ML SYRINGE SUB-Q (09:54)
[2024-02-05 12:40] LABS: Mycoplasma IgM Antibody Titer 136 U/mL (<770)
--- NOTE | 2024-02-05 13:02 | HOMEO2EVAL ---
Evaluation was performed at [facility] Home Oxygen Evaluation RC: Home Oxygen (O2) Evaluation Start: 02/05/24 11:21 Freq: ONCE Status: Active Protocol: RPE Activity Type Activity Date Activity User E-sign Co-sign Detail Recorded Client Recorded Date Recorded By Document 02/05/24 12:30 [email or web address] [email or web address] 02/05/24 13:02 DJO Document 02/05/24 12:35 [email or web address] [email or web address] 02/05/24 13:02 DJO Document 02/05/24 12:40 [email or web address] [email or web address] 02/05/24 13:02 DJO Document 02/05/24 12:45 [email or web address] [email or web address] 02/05/24 13:02 DJO Document 02/05/24 13:00 [email or web address] [email or web address] 02/05/24 13:02 DJO 02/05/24 02/05/24 02/05/24 12:30 12:35 12:40 Home O2 Evaluation [Oxygen] -Test Phase Resting Exercise Exercise -Oxygen Delivery Room Air Room Air Nasal Cannula -Oxygen Flow Rate (L/min) 1 [Pulse Oximetry] -Pulse Oximetry (90-100 %) 90 86 L 88 L [Pulse Rate] -Pulse Rate (60-100 beats/min) 66 84 85 [Evaluation] -Activity Tolerance [Exercise] -Ambulation Distance (feet) -Ambulation Distance (meters) [Charges] -Evaluation Charges O2 Evaluation by Pulmonary 02/05/24 02/05/24 12:45 13:00 Home O2 Evaluation [Oxygen] -Test Phase Exercise Resting -Oxygen Delivery Nasal Cannula Room Air -Oxygen Flow Rate (L/min) 2 [Pulse Oximetry] -Pulse Oximetry (90-100 %) 91 91 [Pulse Rate] -Pulse Rate (60-100 beats/min) 86 68 [Evaluation] -Activity Tolerance Good [Exercise] -Ambulation Distance (feet) 500 -Ambulation Distance (meters) 152.39 [Charges] -Evaluation Charges
--- NOTE | 2024-02-05 13:04 | PM.PNPUL ---
Progress Note: A&P Assessment and Plan (1) Pneumonia: Qualifiers: Laterality: unspecified laterality Lung location: unspecified part of lung Pneumonia type: due to unspecified organism Qualified Code(s): J18.9 - Pneumonia, unspecified organism Code(s): J18.9 - Pneumonia, unspecified organism Status: Acute Assessment and Plan: 02/03/24: She has infiltrate on chest x-ray, elevated white blood cell count, increasing shortness of breath, increased O2 requirement.? Her serology for viral pathogens is negative.? She does not have significant sputum production.? Her current antibiotic choices azithromycin and ceftriaxone are appropriate. Continue diuresis, await Urine antigens for strep pneumococcus and Legionella. If she has increased O2 need, repeat CXR. Check extended respiratory pathogen panel. 02/03: Afebrile. White blood cell count 16.3. 02/05/24: Patient states she is much better than when she arrived. She states she is 80% back to her normal. Minimal cough, no hemoptysis. White blood cell count 11.8, creatinine 1.8 she is afebrile. When I enter the room the patient was on 2 L nasal cannula saturations 99%. I decreased her to room air and after 13 minutes her saturations were 91%. 02/05/2024, home O2 assessment: Rest room air saturation 90%. Exercise room air saturation 86%. Exercise nasal cannula 1 L saturation 88%. Exercise 2 L nasal cannula saturation 91%. patient requires no oxygen at rest and 2 with activity Plan: Continue ceftriaxone and azithromycin. Patient will stay in the hospital tonight as her creatinine is elevated to 1.8. I have held her Lasix. if the patient is clinically stable and creatinine improved on 02/05 she is ready to be discharged From a pulmonary perspective patient is ready to be discharged on these pulmonary medications: Levaquin 750 mg p.o. q.day times 5 days Trelegy 100 at One puff q.day Rescue albuterol 2 puffs Q 4 hours p.r.n. shortness of breath or wheezing. Benzonatate 200 mg p.o. t.i.d. p.r.n. cough. Oxygen 0 at rest and 2 L with activity. Oxygen 2 L nasal cannula at night Follow-up in the Pulmonary Clinic on her previously scheduled appointment 04/07/2024. Discussed with Dulce Maria Laboy, will follow with you. (2) COPD (chronic obstructive pulmonary disease): Code(s): J44.9 - Chronic obstructive pulmonary disease, unspecified Status: Acute Assessment and Plan: 02/03/24: Continue her bronchodilators, now on albuterol and ipratropium nebulized; at home uses Trelegy. 02/05/24: she has no wheezing on exam. No evidence of an active COPD exacerbation. Plan: I will continue her trilogy 100. Since this provides adequate beta agonist and muscarinic antagonists I will discontinue her nebulizers. I will order an overnight oximetry on 2 L tonight. Subjective Date/time seen: 02/05/24 13:04 Interval history: 02/03/24 NEW pulmonary consult: Anne-Marie Markham is a 68-year-old female smoker with COPD, on O2, and smokes a half pack a day. She is on home O2 admitted with increased shortness of breath; her last office visit was 07/15/2023 up in our clinic. The patient was weak, not feeling well; Her sister who was sick was visiting from [facility] January 24 for her mother's weekend.? Her mother is 101 years old and is recovering from a fractured hip after falling. The patient thinks she may have gotten sick from her sister.? The patient developed hoarseness, could not eat, shortness of breath without fever or chills.? Family called 911.? She did not have a fever on arrival.? On 4 L saturation was in the upper 90s.? She had an elevated white blood cell count 14 which is now higher 16k, her initial BUN was normal 15 and creatinine 0.9, and with diuresis these have increased, now 391.5.Swabs were negative for influenza A/B, RSV and COVID.? Chest x-ray showed minimal basilar pulmonary edema.? She was treated with ceftriaxone, azithromycin, DuoNebs and IV methylp
--- NOTE | 2024-02-05 13:20 | P.PNIM_ITS ---
Progress Note: A&P Assessment and Plan (1) Acute and chronic respiratory failure with hypoxia: Code(s): J96.21 - Acute and chronic respiratory failure with hypoxia Status: Acute Assessment and Plan: patient usually only has to wear oxygen 2 liters/minute at night but on admission was requiring 4 liters/minute during the day to maintain saturation above 90%. Continue supplemental oxygen attempt to wean during the day. 02/03: oxygen had to be increased slightly this morning due to dyspnea and fluid overload. 02/05/24: * Likely due to new onset CHF and pulmonary hypertension * Currently on room air at rest * Patient requiring 2 L with activity and at night while sleeping * Will get ApneaLink on 2 L tonight per pulmonology * Continue Levaquin and azithromycin * Continue to hold Lasix and further diuresis due to bump in creatinine (2) Congestive heart failure: Code(s): I50.9 - Heart failure, unspecified Status: Acute Assessment and Plan: 02/05/24: * New onset diastolic heart failure * Echo revealed normal LV systolic function with an estimated EF of 65-70%, grade 2 diastolic dysfunction, mild pulmonary hypertension * BNP 248 on arrival * Cardiology consulted for further assistance * Does not have a line cook, being managed by PCP currently. Patient agreeable establishing line cook at this point. (3) JESSICA (acute kidney injury): Code(s): N17.9 - Acute kidney failure, unspecified Status: Acute Assessment and Plan: 02/03: Worsened renal function on labs this morning. Cr 1.5, BUN 39, eGFR 34 02/05/24: * Creatinine increased to 1.8, EGFR 28 * Diuretics on hold * Continue to monitor (4) Abnormal chest x-ray: Code(s): R93.89 - Abnormal findings on diagnostic imaging of other specified body structures Status: Acute Assessment and Plan: Findings of pulmonary edema chest x-ray. Echocardiogram shows grade 2 diastolic dysfunction with some mild pulmonary artery hypertension. Patient is being treated for possible pneumonia and congestive heart failure. 02/05/24: * Will hold off on further diuresis due to bump in creatinine (5) Hypertension: Code(s): I10 - Essential (primary) hypertension Status: Chronic Assessment and Plan: History of chronic hypertension takes atenolol and HCTZ. Stop HCTZ and add furosemide for pulmonary edema. Blood pressure reviewed on 02/03. 02/05/24: * Blood pressure well controlled on atenolol * Continue to hold Lasix (6) Hyperlipidemia: Qualifiers: Hyperlipidemia type: mixed hyperlipidemia Qualified Code(s): E78.2 - Mixed hyperlipidemia Code(s): E78.5 - Hyperlipidemia, unspecified Status: Chronic Assessment and Plan: Continue home medications 02/05/24: * No change to current treatment plan (7) Prediabetes: Code(s): R73.03 - Prediabetes Status: Acute Assessment and Plan: Prior hemoglobin A1c of 5.7 about 5 months ago. Slightly elevated on chemistry panel. Patient is on heart healthy diet. If this continues to rise with chemistry panels then we will recheck A1c and initiate fingerstick glucose with sliding scale insulin. 02/03: Glucose normal on chemistry morning labs 02/05/24: * Blood sugars ranging 93-108 * Continue with current treatment plan (8) Tobacco dependence: Code(s): F17.200 - Nicotine dependence, unspecified, uncomplicated Status: Acute Assessment and Plan: Smoking cessation reinforced. Continue to reinforce smoking cessation.
--- NOTE | 2024-02-05 13:20 | PM.IMPN ---
Progress Note: A&P Assessment and Plan (1) Acute and chronic respiratory failure with hypoxia: Code(s): J96.21 - Acute and chronic respiratory failure with hypoxia Status: Acute Assessment and Plan: patient usually only has to wear oxygen 2 liters/minute at night but on admission was requiring 4 liters/minute during the day to maintain saturation above 90%. Continue supplemental oxygen attempt to wean during the day. 02/03: oxygen had to be increased slightly this morning due to dyspnea and fluid overload. 02/05/24: Likely due to new onset CHF and pulmonary hypertension Currently on room air at rest Patient requiring 2 L with activity and at night while sleeping Will get ApneaLink on 2 L tonight per pulmonology Continue Levaquin and azithromycin Continue to hold Lasix and further diuresis due to bump in creatinine (2) Congestive heart failure: Code(s): I50.9 - Heart failure, unspecified Status: Acute Assessment and Plan: 02/05/24: New onset diastolic heart failure Echo revealed normal LV systolic function with an estimated EF of 65-70%, grade 2 diastolic dysfunction, mild pulmonary hypertension BNP 248 on arrival Cardiology consulted for further assistance Does not have a implementation coordinator, being managed by PCP currently. Patient agreeable establishing implementation coordinator at this point. (3) JESSICA (acute kidney injury): Code(s): N17.9 - Acute kidney failure, unspecified Status: Acute Assessment and Plan: 02/03: Worsened renal function on labs this morning. Cr 1.5, BUN 39, eGFR 34 02/05/24: Creatinine increased to 1.8, EGFR 28 Diuretics on hold Continue to monitor (4) Abnormal chest x-ray: Code(s): R93.89 - Abnormal findings on diagnostic imaging of other specified body structures Status: Acute Assessment and Plan: Findings of pulmonary edema chest x-ray. Echocardiogram shows grade 2 diastolic dysfunction with some mild pulmonary artery hypertension. Patient is being treated for possible pneumonia and congestive heart failure. 02/05/24: Will hold off on further diuresis due to bump in creatinine (5) Hypertension: Code(s): I10 - Essential (primary) hypertension Status: Chronic Assessment and Plan: History of chronic hypertension takes atenolol and HCTZ. Stop HCTZ and add furosemide for pulmonary edema. Blood pressure reviewed on 02/03. 02/05/24: Blood pressure well controlled on atenolol Continue to hold Lasix (6) Hyperlipidemia: Qualifiers: Hyperlipidemia type: mixed hyperlipidemia Qualified Code(s): E78.2 - Mixed hyperlipidemia Code(s): E78.5 - Hyperlipidemia, unspecified Status: Chronic Assessment and Plan: Continue home medications 02/05/24: No change to current treatment plan (7) Prediabetes: Code(s): R73.03 - Prediabetes Status: Acute Assessment and Plan: Prior hemoglobin A1c of 5.7 about 5 months ago. Slightly elevated on chemistry panel. Patient is on heart healthy diet. If this continues to rise with chemistry panels then we will recheck A1c and initiate fingerstick glucose with sliding scale insulin. 02/03: Glucose normal on chemistry morning labs 02/05/24: Blood sugars ranging 93-108 Continue with current treatment plan (8) Tobacco dependence: Code(s): F17.200 - Nicotine dependence, unspecified, uncomplicated Status: Acute Assessment and Plan: Smoking cessation reinforced. Continue to reinforce smoking cessation. Offer nicotine patch. 02/05/24: Continue with current treatment plan Time Spent With Patient Time with patient: Greater than 35 minutes Subjective Date/time seen: 02/05/24 13:20 Interval history: Pulled from previous chart: 02/01: This is a 68-year-old female smoker with chronic obstructive pulmonary disease, chronic respiratory failure on 2 liters/minute at night with sleep, prediabetes, hypertension
[2024-02-05] MEDS: ACETAMINOPHEN 325 MG TABLET 650 MG PO (20:21)
[2024-02-05] MEDS: LOSARTAN POTASSIUM 100 MG TABLET PO (20:21)
[2024-02-05] MEDS: ATORVASTATIN 10 MG TABLET PO (20:21)
[2024-02-06 05:59] LABS: Hematocrit 42.3 % (37.0-47.0); Hemoglobin 13.3 g/dL (12.0-15.0); Mean Corpuscular HGB Conc 31.4 g/dl (32-36); Mean Corpuscular Hemoglobin 29.5 pg (26-34); Mean Corpuscular Volume 93.8 fl (80-100); Mean Platelet Volume 9.5 fl (7.4-10.4); Platelet Count Result 307 k/mm3 (150-375); Red Blood Count 4.51 M/mm3 (4.2-5.4); Red Cell Distribution Width 13.2 % (11.5-14.5); White Blood Count 11.7 K/mm3 (4.5-10.0)
[2024-02-06 06:00] VITALS: BP 119/57; PULSE 68; RESP 18; TEMP 36; O2SAT 99
[2024-02-06 06:18] LABS: Alanine Aminotransferase 58 U/L (6-35); Albumin Level 3.6 g/dL (3.5-5.1); Alkaline Phosphatase 76 U/L (38-126); Aspartate Amino Transferase 42 U/L (14-36); Bilirubin,Total 0.5 mg/dL (0.2-1.3); Blood Urea Nitrogen 28 mg/dL (7-17); Calcium 9.2 mg/dL (8.4-10.2); Carbon Dioxide > 40 mmol/L (22-30); Chloride 99 mmol/L (98-107); Estimated CRCL calculation 41 ml/min; Estimated Glomerular Filt Rate 41; Glucose 97 mg/dL (65-110); Magnesium 2.3 mg/dL (1.6-2.3); Sodium 139 mmol/L (137-145)
--- NOTE | 2024-02-06 07:32 | PM.DS ---
DS: Admitting Diagnosis Discharge Date 02/06/24 Admitting Diagnosis COPD exacerbation Acute on chronic respiratory failure with hypoxia Abnormal chest x-ray hypertension hyperlipidemia Prediabetes tobacco dependence. DS: Discharge Diagnosis Discharge Diagnosis (1) Acute and chronic respiratory failure with hypoxia: Code(s): J96.21 - Acute and chronic respiratory failure with hypoxia Status: Acute (2) Congestive heart failure: Code(s): I50.9 - Heart failure, unspecified Status: Acute (3) JESSICA (acute kidney injury): Code(s): N17.9 - Acute kidney failure, unspecified Status: Acute (4) Abnormal chest x-ray: Code(s): R93.89 - Abnormal findings on diagnostic imaging of other specified body structures Status: Acute (5) Hypertension: Code(s): I10 - Essential (primary) hypertension Status: Chronic (6) Hyperlipidemia: Qualifiers: Hyperlipidemia type: mixed hyperlipidemia Qualified Code(s): E78.2 - Mixed hyperlipidemia Code(s): E78.5 - Hyperlipidemia, unspecified Status: Chronic (7) Prediabetes: Code(s): R73.03 - Prediabetes Status: Acute (8) Tobacco dependence: Code(s): F17.200 - Nicotine dependence, unspecified, uncomplicated Status: Acute DS: Summary Hospital Course Reason for hospitalization: COPD exacerbation Acute on chronic respiratory failure with hypoxia Abnormal chest x-ray hypertension hyperlipidemia Prediabetes tobacco dependence. Hospital Course: Interval history: Pulled from previous chart: 02/01:? This is a 68-year-old female smoker with chronic obstructive pulmonary disease, chronic respiratory failure on 2 liters/minute at night with sleep, prediabetes, hypertension, and hyperlipidemia who presented to the emergency department for evaluation of shortness of breath. The patient provides the following history. She has not felt well for a couple of days with subjective fever, chills, cough occasionally productive of light yellow phlegm, increasing dyspnea on lesser and lesser exertion, decreased appetite, and nausea. Her shortness of breath was worse overnight and this morning and she came in for evaluation. She uses her maintenance inhalers but has not tried using her rescue inhaler.? She has not have nebulizers at home. She denies documented fever, sick contacts, sinus congestion, sore throat, chest and pleuritic pain, palpitations, orthopnea, paroxysmal nocturnal dyspnea, calf pain, edema, vomiting, and diarrhea. In the ED: She was afebrile on arrival with stable vital signs. SpO2 has been in the upper 90s on 4 L nasal cannula. Labs were significant for a WBC count of 14.0, carbon dioxide 37, glucose 133, proBNP 248.? She tested negative for influenza, RSV, and COVID. Chest x-ray showed possible minimal bibasilar pulmonary edema. She received a DuoNeb, azithromycin, ceftriaxone, and methylprednisolone and she is being admitted in this setting for treatment of COPD exacerbation and possible pneumonia. 02/02:? This is a 68-year-old female patient with a past history of COPD hypertension who is admitted for difficulty breathing requiring oxygen around the clock.? Patient reports that she does wear oxygen 2 L at nighttime at home due to her COPD but never needs it during the day.? She reports that she was generally not feeling well a days ago and developed cough and difficulty breathing.? She states this feels different than her prior COPD exacerbations.? No past history of congestive heart failure chest x-ray in the emergency department shows pulmonary edema.? Echocardiogram completed showing grade 2 diastolic dysfunction.? Will initiate Lasix and discontinue HCTZ that patient takes for her hypertension.? Patient was also started on IV antibiotics for possible pneumonia will continue Rocephin IV and changes azithromycin to oral.? Slight JESSICA noted with estimated GFR down to 49 this morning when it was greater than 60 the E
[2024-02-06] MEDS: FLUTICASONE/UMECLIDIN/VILANTER 100-62.5-25 MCG ELLIPTA 1 PUFF INHALATION (08:04)
[2024-02-06 08:05] VITALS: PULSE 76; RESP 20; O2SAT 91
--- NOTE | 2024-02-06 08:39 | PM.PNPUL ---
Progress Note: A&P Assessment and Plan (1) Pneumonia: Qualifiers: Laterality: unspecified laterality Lung location: unspecified part of lung Pneumonia type: due to unspecified organism Qualified Code(s): J18.9 - Pneumonia, unspecified organism Code(s): J18.9 - Pneumonia, unspecified organism Status: Acute Assessment and Plan: 02/03/24: She has infiltrate on chest x-ray, elevated white blood cell count, increasing shortness of breath, increased O2 requirement.? Her serology for viral pathogens is negative.? She does not have significant sputum production.? Her current antibiotic choices azithromycin and ceftriaxone are appropriate. Continue diuresis, await Urine antigens for strep pneumococcus and Legionella. If she has increased O2 need, repeat CXR. Check extended respiratory pathogen panel. 02/03: Afebrile. White blood cell count 16.3. 02/05/24: Patient states she is much better than when she arrived. She states she is 80% back to her normal. Minimal cough, no hemoptysis. White blood cell count 11.8, creatinine 1.8 she is afebrile. When I enter the room the patient was on 2 L nasal cannula saturations 99%. I decreased her to room air and after 13 minutes her saturations were 91%. 02/05/2024, home O2 assessment: Rest room air saturation 90%. Exercise room air saturation 86%. Exercise nasal cannula 1 L saturation 88%. Exercise 2 L nasal cannula saturation 91%. patient requires no oxygen at rest and 2 with activity Plan: Continue ceftriaxone and azithromycin. Patient will stay in the hospital tonight as her creatinine is elevated to 1.8. I have held her Lasix. later in day, home O2 assessment: Rest room air saturation 90%. Exercise room air saturation 86%. Exercise nasal cannula 1 L saturation 88%. Exercise nasal cannula 2 L saturation 91%. Patient requires no oxygen at rest and 2 L with activity. 02/06/24: Improved. She tells me she is 85% back to her normal. She has minimal cough with no phlegm and no hemoptysis. She has no wheezing. White blood cell count 11.7, creatinine 1.30. Overnight oximetry was inadvertently done on room air rather than 2 L as ordered with recording duration of 7 hours and 35 minutes. Average saturation 87%. Low saturation 80%. Time with saturation less than or equal to 88% was 384 minutes. Plan: From a pulmonary perspective patient is ready to be discharged on these pulmonary medications: Levaquin 750 mg p.o. q.day times 5 days Trelegy 100 at One puff q.day Rescue albuterol 2 puffs Q 4 hours p.r.n. shortness of breath or wheezing. Benzonatate 200 mg p.o. t.i.d. p.r.n. cough. Oxygen 0 at rest and 2 L with activity. Oxygen 2 L nasal cannula at night. We will order an overnight oximetry on 2 L at home. Follow-up in the Pulmonary Clinic on her previously scheduled appointment 04/07/2024. Discussed with Dulce Maria Laboy, will sign off, call with questions. (2) COPD (chronic obstructive pulmonary disease): Code(s): J44.9 - Chronic obstructive pulmonary disease, unspecified Status: Acute Assessment and Plan: 02/03/24: Continue her bronchodilators, now on albuterol and ipratropium nebulized; at home uses Trelegy. 02/05/24: she has no wheezing on exam. No evidence of an active COPD exacerbation. Plan: I will continue her trilogy 100. Since this provides adequate beta agonist and muscarinic antagonists I will discontinue her nebulizers. I will order an overnight oximetry on 2 L tonight. 02/06/24: No wheezes on exam. Plan: Discharge on Trelegy 100, rescue albuterol, Tessalon Perles 200 t.i.d. p.r.n., oxygen non at rest and 2 L with activity and 2 L oxygen at night. Subjective Date/time seen: 02/06/24 08:39 Interval history: 02/03/24 NEW pulmonary consult: Anne-Marie Markham is a 68-year-old female smoker with COPD, on O2, and smokes a half pack a day. She is on home O2 admitted with increased shortness of breath; her last office visit w
--- NOTE | 2024-02-06 08:45 | PM.CNCAR ---
Assessment and Plan Assessment and plan (1) Congestive heart failure: Code(s): I50.9 - Heart failure, unspecified Status: Acute Plan This is a 68-year-old lady with longstanding hypertension as well as significant COPD with ongoing cigarette smoking. She comes to the hospital on Friday of this week with increasing shortness of breath and by chest x-ray appears to have had a mild degree of CHF. Her echocardiogram demonstrates excellent systolic function and the absence of any significant valvular disease. She does however have grade 2 diastolic noncompliance. Her blood pressure is well controlled with the combination of atenolol and losartan. At this time I would recommend prescribing 20 mg of furosemide instead of the hydrochlorothiazide that she was taking prior to admission. Hopefully this will improve her diastolic filling pressures and her symptoms of dyspnea. It appears that preparations are being made for discharge today as I mentioned in my note above. Since she has completely normal LV systolic function I believe that her PCP is more than capable following this lady's condition as an outpatient after discharge. Joel Massey MD [facility] History of Present Illness History of Present Illness Consult date/time: 02/06/24 08:45 Reason For Visit: Pneumonia/Hypoxia Narrative: This is a 68-year-old woman I am asked to see at the request of the hospitalist because of diastolic heart failure. The patient is unknown to me prior to this encounter and I do not believe has a prior history of known cardiac problems. She does have longstanding hypertension as well as significant COPD with long-standing/ongoing cigarette smoking. She was hospitalized on Friday of this week with some shortness of breath and treated as a COPD exacerbation. Her chest x-ray on admission showed some bibasilar pulmonary congestion and an echocardiogram was done. This study was interpreted by Dr. Anglin as demonstrating normal left ventricular systolic function, no significant valvular dysfunction and grade 2 diastolic noncompliance. Her baseline medical regimen for hypertension includes a 10 allow all 50 mg daily as well as losartan 100 mg daily along with 12.5 mg of hydrochlorothiazide. Since admission she has been given intravenous furosemide instead of the thiazide. That was stopped yesterday because of an elevation in her creatinine. According to the record it looks like plans are being made for discharging her today since I see a discharge summary being prepared in the record. Her 12 lead electrocardiogram is essentially unremarkable. She is comfortable and has no complaints today. Her portfolio strategist notes are in the record she does have relatively severe COPD and is on home oxygen at night and when she ambulates. She describes no symptoms of orthopnea PND or accumulating edema. Review of Systems Constitutional: Constitutional: Reports no additional constitutional complaints Eyes: Eyes: Reports no additional eye complaints ENT: Reports system reviewed and no additional complaints, except as documented Cardiovascular: Cardiovascular: Reports no additional cardiovascular complaints Respiratory: Respiratory: Reports dyspnea on exertion Gastrointestinal: Gastrointestinal: Reports no additional gastrointestinal complaints Musculoskeletal: Musculoskeletal: Reports no additional musculoskeletal complaints Integumentary/Breasts: Skin/Breast: Reports system reviewed and no additional complaints, except as docu Neurologic: Reports system reviewed and no additional complaints, except as documented Endocrine: Endocrine: Reports no additional endocrine complaints Hematologic/Lymphatic: Hematologic/Lymphatic: Reports no additional hematologic/lymphatic complaints Allergic/Immunologic: Allergic/Immunologic: Reports no additional allergic/immunologic complaints [facility] Past Medical History Medical History (Updated 02/05/24 @ 16:34 by Dulce Maria Johns
[2024-02-06 08:48] LABS: Band Neutrophils Percent 6 % (0-6); Lymphocytes Absolute Manual 4.21 K/mm3 (1.1-4.5); Monocytes Absolute Manual 0.46 K/mm3 (0.1-0.90); Monocytes Percent Manual 4 % (3-9); Neutrophils Absolute Manual 7.02 K/mm3 (1.7-7.2); Neutrophils Percent Manual 54 % (46-73); Platelet Estimate Adequate (Adequate); Total Cells Counted 100
[2024-02-06 08:49] LABS: Atypical Lymphocytes Present; Hypochromasia 1+; Schistocytes None Seen
[2024-02-06 09:32] VITALS: O2SAT 91
[2024-02-06 09:34] VITALS: BP 116/43
[2024-02-06] MEDS: POTASSIUM CHLORIDE 20 MEQ ER TABLET 40 MEQ PO (09:37)
[2024-02-06] MEDS: BENZONATATE 100 MG CAPSULE 200 MG PO (09:37)
[2024-02-06] MEDS: ENOXAPARIN 40 MG/0.4 ML SYRINGE SUB-Q (09:38)
[2024-02-06] MEDS: MULTIVITAMINS THERAPEUTIC TAB (*BKC) 1 TABLET PO (09:38)
[2024-02-06] MEDS: AZITHROMYCIN 250 MG TABLET 500 MG PO (09:38)
[2024-02-06 11:46] VITALS: PULSE 66
[2024-02-06] MEDS: atenoloL 50 MG TABLET 25 MG PO (11:46)
== END 2024-02-06 12:45 | disposition home or self-care (01) | DRG 193 ==
LOC: ANHED 09:20 → ANH2MED 11:59
PROVIDERS: Nurse Practitioner; Physician Assistant; Admitting Provider Internal Medicine; Emergency Provider Emergency Medicine; PCP Family Medicine; Visit Provider Nurse Practitioner Acute Care
DX: J18.9 Pneumonia, unspecified organism (principal); I50.31 Acute diastolic (congestive) heart failure; J96.21 Acute and chronic respiratory failure with hypoxia; J44.0 Chronic obstructive pulmonary disease with (acute) lower respiratory infection; J44.1 Chronic obstructive pulmonary disease with (acute) exacerbation; N17.9 Acute kidney failure, unspecified; K76.0 Fatty (change of) liver, not elsewhere classified; I10 Essential (primary) hypertension; E78.5 Hyperlipidemia, unspecified; R73.03 Prediabetes; F17.210 Nicotine dependence, cigarettes, uncomplicated; Z20.822 Contact with and (suspected) exposure to COVID-19; Z87.442 Personal history of urinary calculi; Z99.81 Dependence on supplemental oxygen; I27.20 Pulmonary hypertension, unspecified
CPT/HCPCS: 36415; 36600; 71046; 80048; 80053; 82375; 82805; 83050; 83735; 83880; 85025; 85027; 86738; 87040; 87449; 87637; 87899; 93005; 93306; 94618; 94640; 94762; 96365; 96375; 99285; A9270; G0378; J0456; J0696; J1650; J1940; J2930

== ENCOUNTER 2024-03-09 10:06 | Outpatient (CLI) | payer OTHER, SELFPAY ==
--- NOTE | ~2024-03-09 | CT_ITS ---
CT Scan of the Chest without Contrast: Clinical Indication: Lung cancer screening, nicotine dependence Technique: Contiguous sections were acquired throughout the chest without intravenous contrast. Dose reduction technique was used on this scan by utilizing automated exposure control and iterative recon struction technique. The dose-length product (DLP) was 117.59 mGy-cm. COMPARISON: 03/07/2023 Findings: There is no evidence of any significant mediastinal, hilar or axillary lymphadenopathy. The mediastin al soft tissues appear normal. There is no evidence of pleural or pericardial effusion. Probable discoid atelectasis or scarring in the right middle lobe. Images through the upper abdomen reveal no abnormalities. Impression: Lung RADS 2: Benign appearance. 12 month follow-up screening CT advised. Reviewed, dictated and finalized at location . Impression: Lung RADS 2: Benign appearance. 12 month follow-up screening CT advised.
== END 2024-03-09 10:07 | disposition home or self-care (01) ==
PROVIDERS: PCP Family Medicine; Visit Provider Nurse Practitioner Family
DX: Z12.2 Encounter for screening for malignant neoplasm of respiratory organs (principal); Z87.891 Personal history of nicotine dependence
CPT/HCPCS: 71271

== ENCOUNTER 2024-08-11 16:02 | Outpatient (CLI) | payer OTHER, SELFPAY ==
--- NOTE | ~2024-08-11 | MM_ITS ---
EXAMINATION: MM screening myriam BI w maryjane HISTORY: Screening TECHNIQUE: Craniocaudal and mediolateral oblique 3-D tomosynthesis images were obtained and synthetic 2-D images were generated. CAD analysis was submitted and interpreted. COMPARISON: Comparison to multiple prior studies sequentially, with oldest reviewed study dated 05/11. BREAST PARENCHYMAL COMPOSITION: Not dense: There are scattered areas of fibroglandular density. FINDINGS: There is a new focal asymmetry in the mid outer aspect of the right breast at approximately 9:00 position, anterior-mid depth. The left breast is stable without evidence for malignancy. IMPRESSION: 1. New focal right breast asymmetry. 2. Additional mammographic views and possible breast ultrasound are recommended. BI-RADS Category 0: Incomplete: Needs additional imaging evaluation. Reviewed, dictated and finalized at location B. IMPRESSION: 1. New focal right breast asymmetry. 2. Additional mammographic views and possible breast ultrasound are recommended . BI-RADS Category 0: Incomplete: Needs additional imaging evaluation.
== END 2024-08-11 16:03 | disposition home or self-care (01) ==
LOC: ANHIMG 16:02
PROVIDERS: PCP Family Medicine; Visit Provider Physician Assistant
DX: Z12.31 Encounter for screening mammogram for malignant neoplasm of breast (principal); R91.8 Other nonspecific abnormal finding of lung field
CPT/HCPCS: 77063; 77067

== ENCOUNTER 2024-08-24 12:53 | Outpatient (CLI) | payer OTHER, SELFPAY ==
--- NOTE | ~2024-08-24 | MMUS_ITS ---
EXAMINATION: MM diagnostic myriam RT w maryjane, US breast RT complete HISTORY: Follow-up right breast TECHNIQUE: Additional 3-D tomosynthesis images of the right breast were performed and synthetic 2-D i mages were generated. CAD analysis was submitted and interpreted. High resolution complete right brady st ultrasound was performed. COMPARISON: Comparison to multiple prior studies sequentially, with oldest reviewed study dated 05/11. BREAST PARENCHYMAL COMPOSITION: Not dense: There are scattered areas of fibroglandular density. FINDINGS: MAMMOGRAPHIC FINDINGS: There are no suspicious masses, calcifications or architectural distortion in the right breast to sug gest malignancy. ULTRASOUND: Complete right breast ultrasound including all 4 quadrants in the subareolar location: At 12:00 near the areola there is a 5 mm cyst. No suspicious masses to suggest malignancy. There are mildly promine nt ducts. IMPRESSION: 1. No evidence for malignancy in the right breast. Benign findings. 2. Routine yearly screening mammogram and regular clinical breast examination are recommended. BI-RADS Category 2: Benign finding(s). Reviewed, dictated and finalized at location B. IMPRESSION: 1. No evidence for malignancy in the right breast. Benign findings. 2. Routine yearly screening mammogram and regular clinical breast examination a re recommended. BI-RADS Category 2: Benign finding(s).
== END 2024-08-24 12:54 | disposition home or self-care (01) ==
LOC: ANHIMG 12:56
PROVIDERS: PCP Family Medicine; Visit Provider Student in an Organized Health Care Education/Training Program
DX: R92.8 Other abnormal and inconclusive findings on diagnostic imaging of breast (principal)
CPT/HCPCS: 76641; 77061; 77065; G0279

== ENCOUNTER 2025-02-08 09:22 | Outpatient (CLI) | payer OTHER, SELFPAY ==
--- NOTE | ~2025-02-08 | US_ITS ---
EXAMINATION: US soft tissue abdomen DATE: 02/08/2025 09:52 INDICATION: Left upper quadrant abdominal mass. TECHNIQUE: Multiple grayscale and Doppler ultrasound images of the abdomen were obtained. COMPARISON: Chest CT 03/09/2024 FINDINGS: In the left upper quadrant, there is prominent subcutaneous fat without well-defined margin to suggest a lipoma. IMPRESSION: 1. Normal fat in the left upper quadrant abdominal wall. Reviewed, dictated and finalized at location A.
--- OUTSIDE RECORDS SUMMARY | 2025-02-08 10:22 | XMS_ITS | Clinical Summary ---
Author Organization [facility] Address [address] [place] [id number] Care Team Providers Care [employer] Math [employer] Name Role Phone Unavailable Primary Care Provider Unavailabl e Social History Tobacco Use Types Packs/Day Years Used Date Smoking Tobacco: Never Assessed Comments Unknown Sex and Gender Information Value Date Recorded Sex Assigned at Not on file Legal Sex Female 4:43 PM CDT Gender Identity Not on file Sexual Orientation Not on file Plan of Treatment Health Maintenance Due Date Last Done Comments Colorectal Cancer Screening Colonoscopy (10 Years) 1954 Hepatitis C 1972 DTaP, Tdap and Td Vaccines ( 1 - Tdap) 1973 Mammogram Screening 1994 Zoster Vaccines (1 of 2) 2004 Dexa Scan (General) 2019 Pneumococcal Vaccine: 65+ Ye ars (1 of 1 - PCV) 2019 COVID-19 Vaccine ( - 2023-2 5 season) 2024 Influenza Adult (#1) 2024 RSV Immunization or 60+ Years (1 - 1-dose 75+ series) 2029 Meningococcal B Vaccine Aged Out No l onger eligible based on patient's age to complete this topic Meningococcal Vaccine Aged Out No adam arminda eligible based on patient's age to complete this topic RSV Immunizations Under 20 Months Aged Out No longer eligible based on patient's age to complete this topic
== END 2025-02-08 09:23 | disposition home or self-care (01) ==
PROVIDERS: PCP Family Medicine; Visit Provider Physician Assistant
DX: R19.02 Left upper quadrant abdominal swelling, mass and lump (principal)
CPT/HCPCS: 76705

== ENCOUNTER 2025-03-10 13:36 | Outpatient (CLI) | payer OTHER, SELFPAY ==
--- NOTE | ~2025-03-10 | CT_ITS ---
CT Scan of the Chest without Contrast: Clinical Indication: Lung cancer screening, nicotine dependence Technique: Contiguous sections were acquired throughout the chest without intravenous contrast. Dose reduction technique was used on this scan by utilizing automated exposure control and iterative recon struction technique. The dose-length product (DLP) was 117.77 mGy-cm. COMPARISON: 03/09/2024 Findings: There is no evidence of any significant mediastinal, hilar or axillary lymphadenopathy. The mediastin al soft tissues appear normal. There is no evidence of pleural or pericardial effusion. The lungs are clear. No pulmonary nodules or infiltrates are noted. Images through the upper abdomen reveal no abnormalities. Impression: Lung RADS 1: Negative. 12 month follow-up screening CT advised. Reviewed, dictated and finalized at location . Impression: Lung RADS 1: Negative. 12 month follow-up screening CT advised.
== END 2025-03-10 13:37 | disposition home or self-care (01) ==
PROVIDERS: Visit Provider Physician Assistant
DX: Z12.2 Encounter for screening for malignant neoplasm of respiratory organs (principal); Z87.891 Personal history of nicotine dependence
CPT/HCPCS: 71271

== ENCOUNTER 2025-08-25 09:40 | Outpatient (CLI) | payer OTHER, SELFPAY ==
--- NOTE | ~2025-08-25 | DEXA_ITS ---
Bone Density Report Name: DAVION MEJIA Age: 69 Sex: Female Ethnicity: White Date of : 1955 Indication: osteopenia; parental hip fracture; asthma or emphysema; hysterectomy; Referring Provider: ALAN NATARAJAN Study: Bone densitometry was performed. Exam Date: August 25, 2025 Accession number: [id number] Bone Density: Region BMD T-score Z-score Classification AP Spine(L1-L4) 0.809 -2.2 0.0 Osteopenia Femoral Neck (Left) 0.600 -2.2 -0.4 Osteopenia Total Hip (Left) 0.837 -0.9 0.7 Normal Femoral Neck (Right) 0.588 -2.3 -0.5 Osteopenia Total Hip (Right) 0.902 -0.3 1.2 Normal Total Hip Mean 0.870 -0.6 1.0 Normal World Health Organization criteria for BMD impression classify patients as: Normal (T-score at or above -1.0), Osteopenia (T-score between -1.0 and -2.5), or Osteoporosis (T-score at or below -2.5). 10-year Fracture Risk(1): Major Osteoporotic Fracture 21% Hip Fracture 9.7% Reported Risk Factors: [place] (), Neck BMD=0.600, BMI=37.2, parental fracture, smoking (1) FRAX(R) Version 3.08. Fracture probability calculated for an untreated patient. Fracture probability may be lower if the patient has received treatment. Previous Exams: -- Region Exam Age BMD T-score BMD Change BMD Change Date g/cm2 vs Baseline vs Previous -- AP Spine (L1-L4) 08/25/2025 69 0.809 -2.2 -2.2% -2.2% 06/23/2023 67 0.828 -2.0 Total Hip(Left) 08/25/2025 69 0.837 -0.9 -4.3%* -4.3%* 06/23/2023 67 0.874 -0.6 Total Hip(Right) 08/25/2025 69 0.902 -0.3 2.7% 2.7% 06/23/2023 67 0.879 -0.5 -- *Denotes significance at 95% confidence level, LSC for AP Spine = 0.022 g/cm2, LSC for Total Hip = 0.027 g/cm2 Clinical Information Provided by Patient: Parent has had a hip fracture Smokes Has used the following medications: Calcium Has the following medical conditions: Asthma or Emphysema, Hysterectomy Patient maximum height was 65 Menopause Age: 38 No regular weight bearing exercise Does not regularly consume dairy products Onset of menses at age 13 Number of children 2 Impression: The patient has low bone mass, based on the Right Femoral Neck T-score. The patient has an estimated ten-year risk of hip fracture of 9.7% and an estimated ten-year risk of major fracture of 21%, based on the WHO FRAX algorithm. The patient has risk factors, including: parental hip fracture, smoking. The BMD for the Total Hip(Left) decreased, changing by -4.3% since the last DXA exam. Discussion: BONE DENSITY IS LOW AT ONE OR MORE SKELETAL SITES. THE PATIENT'S BMD AND CLINICAL RISK FACTORS CONTRIBUTE TO THIS PATIENT'S HIGH RISK OF FRACTURE. This patient's lowest T-score is low at one or more skeletal sites. It meets the World Health Organization's (WHO) criteria for ?low bone mass? (T-score between -1.0 and -2.5). The patient's 10-year risk of hip fracture and 10 year risk of a major osteoporotic fracture as calculated by FRAX exceeds the threshold where pharmacological therapy is recommended by the National Osteoporosis Foundation (NOF). However, all treatment decisions require clinical judgment and consideration of individual patient factors, including patient preferences, comorbidities, previous drug use, risk factors not captured in the FRAX model (e.g., frailty, falls, vitamin D deficiency, increased bone turnover, interval significant decline in bone density) and possible under or overestimation of fracture risk by FRAX. The patient should follow a healthful lifestyle (good nutrition with adequate calcium and vitamin D, and appropriate weight-bearing exercise). Follow-Up: Consider a repeat BMD and Vertebral Fracture Assessment (VFA) exam in 2 years or sooner if medically necessary, to reassess this patient's status. Reported by: SANDRO on 08/25/2025 10:15:00 AM. Reviewed, dictated and finalized at location A.
== END 2025-08-25 09:41 | disposition home or self-care (01) ==
LOC: MICIMG 09:40
PROVIDERS: PCP Family Medicine; Visit Provider Student in an Organized Health Care Education/Training Program
DX: M85.89 Other specified disorders of bone density and structure, multiple sites (principal); Z78.0 Asymptomatic menopausal state
CPT/HCPCS: 77080